=== PATIENT | male | born 1935 | race Caucasian/White ===

== ENCOUNTER 2017-05-23 06:56 | Emergency (ER) | payer MEDICARE, OTHER ==
[~2017-05-23] VITALS: Ht 167.6 cm; Wt 60.0 kg
[~2017-05-23 06:56] MED LIST: ACET250C PO; ALPH1CAP PO; ASPI81CH CHEW; COEN200C4 PO; DOCO1CAP2 PO; LIVA2TAB PO; NIAS1000 PO; OMEG12002 PO; PLAV75TA29 PO; PROT40TA PO
[2017-05-23 07:12] VITALS: BP 187/84; PULSE 76; RESP 22; TEMP 98.3; O2SAT 97
[2017-05-23] MEDS ORDERED: ESCI5TAB PO (07:23)
[2017-05-23 07:25] VITALS: RESP 18; O2SAT 97
[2017-05-23] MEDS ORDERED: PROMETHAZINE INJ 25 MG/ML VIAL IM ONE (07:30)
[2017-05-23 07:42] LABS: AUTOMATED NEUTROPHIL # 6.5 TH/MM3 (1.8-7.7); BASOPHIL # 0.1 TH/MM3 (0-0.2); BASOPHIL % 0.8 % (0.0-2.0); EOSINOPHIL # 0.8 TH/MM3 (0-0.4); EOSINOPHIL % 8.5 % (0.0-4.0); HEMATOCRIT 44.7 % (39.0-51.0); HEMO FLAGS DIFF FINAL; LYMPH % 13.7 % (9.0-44.0); LYMPHOCYTE # 1.3 TH/MM3 (1.0-4.8); MEAN CELL VOLUME 94.2 FL (80.0-100.0); MONO % 10.5 % (0.0-8.0); NEUT % 66.5 % (16.0-70.0); PLATELET COUNT 125 TH/MM3 (150-450); RED BLOOD COUNT 4.74 MIL/MM3 (4.50-5.90); RED CELL DISTRIBUTION WIDTH 13.5 % (11.6-17.2); WHITE BLOOD COUNT 9.8 TH/MM3 (4.0-11.0)
--- NOTE | 2017-05-23 07:46 | RADRPT ---
EXAM DATE/TIME: 05/23/2017 07:22 [facility] COMPARISON: No previous studies available for comparison. INDICATIONS : Dizziness and vomitting. MEDICAL HISTORY : Stroke. Hypertension Asthma. SURGICAL HISTORY : None. ENCOUNTER: Initial ACUITY: 1 day PAIN SCORE: 0/10 LOCATION: Bilateral chest FINDINGS: The heart is normal in size. The lungs appear clear. The visualized bony structures are grossly intac t. CONCLUSION: No acute cardiopulmonary findings. Sharath Larson MD on May 23, 2017 at 7:44 Board Certified Radiologist. This report was verified electronically.
--- NOTE | 2017-05-23 07:47 | RADRPT ---
EXAM DATE/TIME: 05/23/2017 07:30 [facility] COMPARISON: No previous studies available for comparison. INDICATIONS : Dizziness. RADIATION DOSE: 56.35 CTDIvol (mGy) MEDICAL HISTORY : Stroke. Hypertension. SURGICAL HISTORY : Tonsillectomy. Corotid endartectomy. ENCOUNTER: Initial ACUITY: 1 day PAIN SCALE: 0/10 LOCATION: Bilateral cranial TECHNIQUE: Multiple contiguous axial images were obtained of the head. Using automated exposure control and adj ustment of the mA and/or kV according to patient size, radiation dose was kept as low as reasonably a chievable to obtain optimal diagnostic quality images. DICOM format image data is available electro nically for review and comparison. FINDINGS: CEREBRUM: The ventricles are normal for age. No evidence of midline shift, mass lesion, hemorrhage or acute in farction. No extra-axial fluid collections are seen. POSTERIOR FOSSA: The cerebellum and brainstem are intact. The 4th ventricle is midline. The cerebellopontine angle i s unremarkable. EXTRACRANIAL: The visualized portion of the orbits is intact. SKULL: The calvaria is intact. No evidence of skull fracture. CONCLUSION: 1. No acute intracranial abnormality is identified. Sharath Larson MD on May 23, 2017 at 7:45 Board Certified Radiologist. This report was verified electronically.
[2017-05-23 07:56] LABS: PROTHROMBIN TIME - PATIENT 10.6 SEC (9.8-11.6)
[2017-05-23 08:11] LABS: ALT (GPT) 46 U/L (12-78); ANION GAP 8 MEQ/L (5-15); AST (GOT) 29 U/L (15-37); BICARBONATE 26.3 MEQ/L (21.0-32.0); BLOOD UREA NITROGEN 14 MG/DL (7-18); CHLORIDE 106 MEQ/L (98-107); GLOMERULAR FILTRATION RATE 91 ML/MIN (>89); POTASSIUM 4.1 MEQ/L (3.5-5.1); SODIUM (NA) 140 MEQ/L (136-145)
[2017-05-23 08:15] LABS: ALKALINE PHOSPHATASE 80 U/L (45-117); CREATINE KINASE 121 U/L (39-308); TOTAL BILIRUBIN ADULT 0.3 MG/DL (0.2-1.0)
--- NOTE | 2017-05-23 08:17 | PD ---
HPI Chief Complaint: Dizziness Time Seen by Provider: 07:20 Travel History International Travel<30 days: No Contact w/Intl Traveler<30days: No Traveled to known affect area: No History of Present Illness HPI has a history of vertigo (but unfortunately has allergy to meclizine). today he 's having another "attack" which makes him very nauseous, worse with movement, no fever/rose but assoc with room spinning, n/v pcp: dr barraza neuro: dr de leon [facility] Past Medical History Asthma: Yes Heart Rhythm Problems: No Cardiovascular Problems: Yes High Cholesterol: Yes Chest Pain: No COPD: No Cerebrovascular Accident: Yes (L SIDED WEAKNESS FROM PREVIOUS CVA) Diabetes: No Diminished Hearing: No Genitourinary: Yes Hypertension: Yes Inguinal Hernia: Yes Neurologic: Yes Migraines: Yes Thyroid Disease: No Triglycerides - High: Yes Tetanus Vaccination: < 5 Years Influenza Vaccination: Yes Past Surgical History Abdominal Surgery: Yes (DOUBLE INGUINAL AND UMBILICAL HERNIA) Cardiac Surgery: Yes (CAROTID ENDARECTOMY 11/20) Cholecystectomy: Yes Oral Surgery: Yes (TONSILLECTOMY) Tonsillectomy: Yes Other Surgery: Yes (gallbladder removal) Social History Alcohol Use: No Tobacco Use: No Substance Use: No Allergies-Medications (Allergen,Severity, Reaction): Coded Allergies: atorvastatin (Unverified Allergy, Severe, "STATINS", 03/30/17) penicillin G (Unverified Allergy, Severe, 03/30/17) shellfish derived (Unverified Allergy, Severe, 03/30/17) Sulfa (Sulfonamide Antibiotics) (Verified Allergy, Intermediate, HIVES, ) meclizine (Verified Allergy, Intermediate, VOMIT, 05/23/17) Reported Meds & Prescriptions Reported Meds & Active Scripts Active Reported Escitalopram (Escitalopram Oxalate) 5 Mg Tab 5 Mg PO DAILY Aspirin 81 Mg Chew 81 Mg CHEW DAILY Plavix (Clopidogrel Bisulfate) 75 Mg Tab 75 Mg PO DAILY Protonix (Pantoprazole Sodium) 40 Mg Tab 40 Mg PO DAILY Lindsay 3 1200 mg (Lindsay-3 Fatty Acids) 1 Cap Cap 1,400 Mg PO DIRECTED Niaspan (Niacin ER) 1,000 Mg Tab 1,000 Mg PO HS Livalo (Pitavastatin) 2 Mg Tab 2 Mg PO DAILY Alpha Lipoic Acid 200 Mg Cap 200 Mg PO DIRECTED Review of Systems HENT: Positive: Vertigo Physical Exam Narrative GENERAL: SKIN: Warm and dry. HEAD: Atraumatic. Normocephalic. EYES: Pupils equal and round. No scleral icterus. No injection or drainage. patient has fatiguable nystagmus (lateral) without rotary or vertical component ENT: No nasal bleeding or discharge. Mucous membranes pink and moist. NECK: Trachea midline. No JVD. CARDIOVASCULAR: Regular rate and rhythm. RESPIRATORY: No accessory muscle use. Clear to auscultation. Breath sounds equal bilaterally. GASTROINTESTINAL: Abdomen soft, non-tender, nondistended. MUSCULOSKELETAL: Extremities without clubbing, cyanosis, or edema. No obvious deformities. NEUROLOGICAL: Awake and alert. No obvious cranial nerve deficits. Motor grossly within normal limits. Five out of 5 muscle strength in the arms and legs. Normal speech. PSYCHIATRIC: Appropriate mood and affect; insight and judgment normal. Data Data Last Documented VS Vital Signs Date Time Temp Pulse Resp B/P (MAP) Pulse Ox O2 Delivery O2 Flow Rate FiO2 05/23/17 07:25 18 97 Room Air 05/23/17 07:17 76 05/23/17 07:12 98.3 187/84 (118) Orders Orders Electrocardiogram (05/23/17 07:20) Complete Blood Count With Diff (05/23/17 07:20) Comprehensive Metabolic Panel (05/23/17 07:20) Ckmb (Isoenzyme) Profile (05/23/17 07:20) Troponin I (05/23/17 07:20) B-Type Natriuretic Peptide (05/23/17 07:20) Prothrombin Time / Inr (Pt) (05/23/17 07:20) Act Partial Throm Time (Ptt) (05/23/17 07:20) Lipase (05/23/17 07:20) Urinalysis - C+S If Indicated (05/23/17 07:20) Chest, Single Ap (05/23/17 07:20) Ct Brain W/O Iv Contrast(Rout) (05/23/17 07:20) Iv Access Insert/Monitor (05/23/17 07:20) Ecg Monitoring (05/23/17 07:20) Oximetry (05/23/17 07:20) Promethazine Inj (Phenergan Inj) (05/23/17 07:30) CKMB (05/23/17 07:30) CKMB% (05/23/17 07:30) Labs Laboratory Tests Test 05/23/17 07:30 White Blood Count 9.8 TH/MM3 Red Blood Count 4.74 MIL/MM3 Hemoglobin 15.2 GM/DL Hematocrit 44.7 % Mean Corpuscular Volume 94.2 FL Mean Corpuscular Hemoglobin 32.0 PG Mean Corpuscular Hemoglobin Concent 34.0 % Red Cell Distribution Width 13.5 % Platelet Count 125 TH/MM3 Mean Platelet Volume 10.0 FL Neutrophils (%) (Auto) 66.5 % Lymphocytes (%) (Auto) 13.7 % Monocytes (%) (Auto) 10.5 % Eosinophils (%) (Auto) 8.5 % Basophils (%) (Auto) 0.8 % Neutrophils # (Auto) 6.5 TH/MM3 Lymphocytes # (Auto) 1.3 TH/MM3 Monocytes # (Auto) 1.0 TH/MM3 Eosinophils # (Auto) 0.8 TH/MM3 Basophils # (Auto) 0.1 TH/MM3 CBC Comment DIFF FINAL Differential Comment Prothrombin Time 10.6 SEC Prothromb Time International Ratio 1.0 RATIO Activated Partial Thromboplast Time 20.0 SEC Blood Urea Nitrogen 14 MG/DL Creatinine 0.81 MG/DL Random Glucose 145 MG/DL Total Protein 6.6 GM/DL Albumin 3.3 GM/DL Calcium Level 8.6 MG/DL Alkaline Phosphatase 80 U/L Aspartate Amino Transf (AST/SGOT) 29 U/L Alanine Aminotransferase (ALT/SGPT) 46 U/L Total Bilirubin 0.3 MG/DL Sodium Level 140 MEQ/L Potassium Level 4.1 MEQ/L Chloride Level 106 MEQ/L Carbon Dioxide Level 26.3 MEQ/L Anion Gap 8 MEQ/L Estimat Glomerular Filtration Rate 91 ML/MIN Total Creatine Kinase 121 U/L Creatine Kinase MB 2.2 NG/ML Troponin I 0.02 NG/ML B-Type Natriuretic Peptide 47 PG/ML Lipase 192 U/L [facility] Medical Decision Making Medical Screen Exam Complete: Yes Emergency Medical Condition: Yes Medical Record Reviewed: Yes Differential Diagnosis ich v pna v anemia v vertigo Narrative Course PATIENT NOTED TO FINALLY REST PEACEFULLY AND WITHOUT FURTHER EPISODES OF VOMITING AFTER PHENERGAN, CT NEG FOR ICH/OR ISCHEMIC CVA, ELECTROLYTE NL, LFTS NL. Diagnosis Primary Impression: VERTIGO Referrals: Dick Lora MD FOR FURTHER TREATMENT Patient Instructions: Benign Paroxysmal Positional Vertigo (ED), General Instructions Scripts Promethazine (Phenergan) 25 Mg Tablet 25 MG PO Q6H Y for NAUSEA OR VOMITING, #20 TAB 0 Refills Prov: Jose Miguel Moses MD 05/23/17 Promethazine Supp (Phenergan Supp) 25 Mg Supp 25 MG RECTAL Q4H Y for NAUSEA OR VOMITING, #10 SUPP 0 Refills Prov: Jose Miguel Moses MD 05/23/17 Disposition: 01 DISCHARGE HOME Condition: Stable Jose Miguel Moses MD May 23, 2017 07:33
[2017-05-23 08:28] LABS: CKMB 2.2 NG/ML (0.5-3.6)
[2017-05-23] MEDS ORDERED: PROM25TA10 PO (09:41)
[2017-05-23] MEDS ORDERED: PROM1SUP7 RECTAL (09:41)
[2017-05-23 09:49] VITALS: BP 136/66; PULSE 77; RESP 20; O2SAT 94
--- NOTE | 2017-05-23 12:57 | EKG ---
Date Performed: 05/23/2017 Time Performed: 07:18:09 PTAGE: 81 years EKG: ELECTRONIC ATRIAL PACEMAKER ABNORMAL RHYTHM ECG NO PREVIOUS TRACING DOCTOR: Rk Peterson Interpretating Date/Time 05/23/2017 12:55:47
== END 2017-05-23 10:23 | disposition home or self-care (01) ==
LOC: NEPC 06:56
DX: R42 Dizziness and giddiness (principal); R11.2 Nausea with vomiting, unspecified; I10 Essential (primary) hypertension; Z79.02 Long term (current) use of antithrombotics/antiplatelets; Z79.899 Other long term (current) drug therapy
CPT/HCPCS: 70450; 71010; 80053; 82550; 82552; 83690; 83880; 84484; 85025; 85610; 85730; 93005; 96372; 99285; J2550

== ENCOUNTER 2017-07-30 17:58 | Emergency (ER) | payer MEDICARE, OTHER ==
[~2017-07-30 17:58] MED LIST changes: -ACET250C PO; -ALPH1CAP PO; +ALPH200C4 PO; +ASPI-516 CHEW; -ASPI81CH CHEW; -COEN200C4 PO; -DOCO1CAP2 PO; +ESCI5TAB PO; +PROM1SUP7 RECTAL; +PROM25TA10 PO
[2017-07-30 18:00] VITALS: BP 161/72; PULSE 70; RESP 14; TEMP 97.7; O2SAT 94
--- NOTE | 2017-07-30 19:03 | PD ---
HPI Chief Complaint: Head Injury Time Seen by Provider: 18:36 Travel History International Travel<30 days: No Contact w/Intl Traveler<30days: No Traveled to known affect area: No History of Present Illness HPI 82-year-old male patient presents emergency department for evaluation after he fell at home while doing rehabilitation exercises and hit his head earlier this afternoon. Patient is on Plavix. Patient had a stroke in 1999 and has very mild residua right-sided weakness. Patient had extreme vertigo he was diagnosed with an October and has been doing rehabilitation exercises at home subsequently to help with his vertigo. Patient is alert and oriented at this time. Patient is unsure if he lost consciousness. There is no hematoma or laceration noted to the posterior aspect of his head which is where he stated he had it. Pupils demonstrated PERRLA bilaterally. Patient denies any midline cervical spine tenderness. Patient has full range of motion neck. Patient denies any fever, chills, chest pain, shortness breath, abdominal pain, nausea, vomiting, diarrhea. PFSH Past Medical History Hx Anticoagulant Therapy: Yes Asthma: Yes Heart Rhythm Problems: No Cancer: Yes (skin spots removed) Cardiovascular Problems: Yes High Cholesterol: Yes Chest Pain: No COPD: No Cerebrovascular Accident: Yes (RIGHT SIDED WEAKNESS FROM PREVIOUS CVA) Diabetes: No Diminished Hearing: No Genitourinary: Yes Hypertension: Yes Inguinal Hernia: Yes Neurologic: Yes Migraines: Yes Thyroid Disease: No Triglycerides - High: Yes Tetanus Vaccination: < 5 Years Influenza Vaccination: No Past Surgical History Abdominal Surgery: Yes (DOUBLE INGUINAL AND UMBILICAL HERNIA) Cardiac Surgery: Yes (CAROTID ENDARECTOMY 11/20) Cholecystectomy: Yes Oral Surgery: Yes (TONSILLECTOMY) Tonsillectomy: Yes Other Surgery: Yes (gallbladder removal) Social History Alcohol Use: No Tobacco Use: No Substance Use: No Allergies-Medications (Allergen,Severity, Reaction): Coded Allergies: atorvastatin (Unverified Allergy, Severe, "STATINS", 07/30/17) penicillin G (Unverified Allergy, Severe, 07/30/17) shellfish derived (Unverified Allergy, Severe, 07/30/17) Sulfa (Sulfonamide Antibiotics) (Verified Allergy, Intermediate, HIVES, ) meclizine (Verified Allergy, Intermediate, VOMIT, 07/30/17) Reported Meds & Prescriptions Reported Meds & Active Scripts Active Reported Escitalopram (Escitalopram Oxalate) 5 Mg Tab 5 Mg PO DAILY Aspirin 81 Mg Chew 81 Mg CHEW DAILY Plavix (Clopidogrel Bisulfate) 75 Mg Tab 75 Mg PO DAILY Protonix (Pantoprazole Sodium) 40 Mg Tab 40 Mg PO DAILY Patterson 3 1200 mg (Patterson-3 Fatty Acids) 1 Cap Cap 1,400 Mg PO DIRECTED Review of Systems Except as stated in HPI: all other systems reviewed are Neg Physical Exam Narrative GENERAL: Well-nourished, well-developed 82-year-old male patient in no acute distress. Nontoxic appearing. SKIN: Focused skin assessment warm/dry. HEAD: Normocephalic. Atraumatic. EYES: No scleral icterus. No injection or drainage. NEUROLOGICAL: Awake and alert. Cranial nerves II through XII intact. Motor and sensory grossly within normal limits. Five out of 5 muscle strength on left side with upper and lower extremity. 4 out of 5 muscle strength on right side with upper and lower extremity. Normal speech. NECK: Supple, trachea midline. No JVD or lymphadenopathy. CARDIOVASCULAR: Regular rate and rhythm without murmurs, gallops, or rubs. RESPIRATORY: Breath sounds equal bilaterally. No accessory muscle use. GASTROINTESTINAL: Abdomen soft, non-tender, nondistended. MUSCULOSKELETAL: Very mild residual right-sided weakness with upper and lower extremity from previous CVA. No obvious deformity, ecchymosis, erythema, cyanosis, or edema. BACK: No midline spinal tenderness. No obvious deformity, ecchymosis, erythema. No CVA tenderness. Data Data Last Documented VS Vital Signs Date Time Temp Pulse Resp B/P (MAP) Pulse Ox O2 Delivery O2 Flow Rate FiO2 07/30/17 20:43 07/30/17 18:00 97.7 [address] Brain W/O Iv Contrast(Rout) (07/30/17 18:49) Ed Discharge Order (07/30/17 20:31) MDM Medical Decision Making Medical Screen Exam Complete: Yes Emergency Medical Condition: Yes Differential Diagnosis Differential diagnosis include but not limited to head injury, ICH, skull fracture, fracture Narrative Course 82-year-old male patient presents emergency department for evaluation of fall where he hit the posterior aspect his head. He is unsure if he lost consciousness. Patient is on Plavix. Patient denies any midline cervical spine tenderness. There is no other injuries noted. Brain CT ordered and pending. CT shows no acute intracranial abnormality. Results discussed with patient and his daughter. Patient will be discharged home with instructions to return to the emergency Department with any acute changes or worsening condition. Patient and daughter onboard with primary care. Patient's daughter is planning to stay at his house tonight to observe him. Patient will be discharged home at this time. Last Impressions Head CT 07/30/17 1849 Signed Impressions: Service Date/Time: Sunday, July 30, 2017 19:33 - CONCLUSION: 1. No acute intracranial abnormality. Remote infarct in the left lópez. Juan Biswas MD Diagnosis Primary Impression: Fall Qualified Codes: W19.XXXA - Unspecified fall, initial encounter Referrals: Primary Care Physician Patient Instructions: Fall Prevention (ED), General Instructions Additional Instructions: Please return to emergency department if your symptoms return or worsen. Follow up with your primary care provider. Disposition: 01 DISCHARGE HOME Condition: Stable Alana Damonandrea ADAMS Jul 30, 2017 19:03
--- NOTE | 2017-07-30 19:50 | RADRPT ---
EXAM DATE/TIME: 07/30/2017 19:33 [facility] COMPARISON: No previous studies available for comparison. INDICATIONS : Trauma, fall. RADIATION DOSE: 31.44 CTDIvol (mGy) MEDICAL HISTORY : Cerebrovascular disease. Cardiovascular disease SURGICAL HISTORY : None. ENCOUNTER: Initial ACUITY: 1 day PAIN SCALE: 5/10 LOCATION: cranial TECHNIQUE: Multiple contiguous axial images were obtained of the head. Using automated exposure control and adj ustment of the mA and/or kV according to patient size, radiation dose was kept as low as reasonably a chievable to obtain optimal diagnostic quality images. DICOM format image data is available electro nically for review and comparison. FINDINGS: CEREBRUM: The ventricles are normal for age. No evidence of midline shift, mass lesion, hemorrhage or acute in farction. No extra-axial fluid collections are seen. POSTERIOR FOSSA: The 4th ventricle is midline. The cerebellopontine angle is unremarkable. Remote infarct left lópez. EXTRACRANIAL: The visualized portion of the orbits is intact. SKULL: The calvaria is intact. No evidence of skull fracture. CONCLUSION: 1. No acute intracranial abnormality. Remote infarct in the left lópez. Juan Biswas MD on July 30, 2017 at 19:46 Board Certified Radiologist. This report was verified electronically.
== END 2017-07-30 21:15 | disposition home or self-care (01) ==
LOC: NEPE 17:58
DX: S09.90XA Unspecified injury of head, initial encounter (principal); I69.951 Hemiplegia and hemiparesis following unspecified cerebrovascular disease affecting right dominant side; J45.909 Unspecified asthma, uncomplicated; E78.00 Pure hypercholesterolemia, unspecified; I10 Essential (primary) hypertension; W18.00XA Striking against unspecified object with subsequent fall, initial encounter; Z79.02 Long term (current) use of antithrombotics/antiplatelets; Z79.82 Long term (current) use of aspirin; Z79.899 Other long term (current) drug therapy
CPT/HCPCS: 70450; 99284

== ENCOUNTER → 2017-10-21 | Outpatient (CLI) | payer MEDICARE, OTHER ==
[~2017-10-21] MED LIST changes: -ALPH200C4 PO; -LIVA2TAB PO; -NIAS1000 PO; -PROM1SUP7 RECTAL; -PROM25TA10 PO
[2017-10-21 19:01] LABS: BILIRUBIN, URINE NEG (NEG); BLOOD, URINE NEG (NEG); GLUCOSE,URINE NEG (NEG); KETONE, URINE NEG (NEG); NITRITE,URINE NEG (NEG); SQUAMOUS EPITHELIAL CELL URINE <1 /hpf (0-5); URINE COLOR YELLOW (YELLW/STRAW); URINE LEUKOCYTE ESTERASE NEG (NEG)
== END ==
LOC: PLAB 11:50
PROVIDERS: ATTEND Family Medicine
DX: R39.89 Other symptoms and signs involving the genitourinary system (principal)
CPT/HCPCS: 81001; 87086

== ENCOUNTER 2018-01-08 02:28 | Emergency (ER) | payer MEDICARE, OTHER ==
[2018-01-08 02:33] VITALS: BP 186/75; PULSE 73; RESP 18; TEMP 98.4; O2SAT 92
--- NOTE | 2018-01-08 02:40 | PD ---
HPI Chief Complaint: Fall Time Seen by Provider: 02:38 Travel History International Travel<30 days: No Contact w/Intl Traveler<30days: No Traveled to known affect area: No History of Present Illness HPI Patient was going to the bathroom, he normally uses a walker. As he entered into the bathroom, he slipped off his walker and fell backwards hitting the back of his head on the tile and his right elbow. His right elbow had a small skin tear which started bleeding. No bleeding from his head, per daughter no evidence of any loss of consciousness he was able to stand up with some assistance and able to ambulate on his walker Per record review has allergies to sulfa, atorvastatin, meclizine, penicillin and shellfish Patient has had a past medical history significant for tonsillectomy, vertigo, right-sided weakness from previous CVA, migraine, carotid endarterectomy, hypercholesterolemia, hyperlipidemia, hypertension, double inguinal umbilical hernia repair, cholecystectomy, PFSH Past Medical History Hx Anticoagulant Therapy: Yes Asthma: Yes Heart Rhythm Problems: No Cancer: Yes (skin spots removed) Cardiovascular Problems: Yes High Cholesterol: Yes Chest Pain: No COPD: No Cerebrovascular Accident: Yes (RIGHT SIDED WEAKNESS FROM PREVIOUS CVA) Diabetes: No Diminished Hearing: No Genitourinary: Yes Hypertension: Yes Inguinal Hernia: Yes Neurologic: Yes (VERTIGO) Immunizations Current: Yes Migraines: Yes Thyroid Disease: No Triglycerides - High: Yes Past Surgical History Abdominal Surgery: Yes (DOUBLE INGUINAL AND UMBILICAL HERNIA) Cardiac Surgery: Yes (CAROTID ENDARECTOMY 11/20) Cholecystectomy: Yes Oral Surgery: Yes (TONSILLECTOMY) Tonsillectomy: Yes Other Surgery: Yes (gallbladder removal) Social History Alcohol Use: No Tobacco Use: No Substance Use: No Allergies-Medications (Allergen,Severity, Reaction): Coded Allergies: atorvastatin (Unverified Allergy, Severe, "STATINS", 01/08/18) penicillin G (Unverified Allergy, Severe, 01/08/18) shellfish derived (Unverified Allergy, Severe, 01/08/18) Sulfa (Sulfonamide Antibiotics) (Verified Allergy, Intermediate, HIVES, ) meclizine (Verified Allergy, Intermediate, VOMIT, 01/08/18) Reported Meds & Prescriptions Reported Meds & Active Scripts Active Reported Livalo (Pitavastatin) 2 Mg Tab 2 Mg PO DAILY Escitalopram (Escitalopram Oxalate) 5 Mg Tab 5 Mg PO DAILY Aspirin 81 Mg Chew 81 Mg CHEW DAILY Plavix (Clopidogrel Bisulfate) 75 Mg Tab 75 Mg PO DAILY Protonix (Pantoprazole Sodium) 40 Mg Tab 40 Mg PO DAILY Review of Systems General / Constitutional: No: Fever Eyes: No: Visual changes HENT: Positive: Headaches Cardiovascular: No: Chest Pain or Discomfort Respiratory: No: Shortness of Breath Gastrointestinal: No: Abdominal Pain Genitourinary: No: Dysuria Musculoskeletal: No: Pain Skin: No Rash Neurologic: No: Weakness Psychiatric: No: Depression Endocrine: No: Polydipsia Hematologic/Lymphatic: No: Easy Bruising Physical Exam Narrative GENERAL: SKIN: Warm and dry. Right elbow has its full range of motion, there is a small skin tear about size of a quarter that is present but not actively bleeding. HEAD: Posterior scalp contusion, normocephalic. EYES: Pupils equal and round. No scleral icterus. No injection or drainage. ENT: No nasal bleeding or discharge. Mucous membranes pink and moist. NECK: Trachea midline. No JVD. CARDIOVASCULAR: Regular rate and rhythm. RESPIRATORY: No accessory muscle use. Clear to auscultation. Breath sounds equal bilaterally. GASTROINTESTINAL: Abdomen soft, non-tender, nondistended. MUSCULOSKELETAL: Extremities without clubbing, cyanosis, or edema. No obvious deformities. NEUROLOGICAL: Awake and alert. No obvious cranial nerve deficits. Motor grossly within normal limits. Five out of 5 muscle strength in the arms and legs. Normal speech. PSYCHIATRIC: Appropriate mood and affect; insight and judgment normal. Data Data Last Documented VS Vital Signs Date Time Temp Pulse Resp B/P (MAP) Pulse Ox O2 Delivery O2 Flow Rate FiO2 01/08/18 02:49 71 18 130/68 (88) 94 Room Air 01/08/18 02:[address] Brain W/O Iv Contrast(Rout) (01/08/18 02:42) [facility] Medical Decision Making Medical Screen Exam Complete: Yes Emergency Medical Condition: Yes Medical Record Reviewed: Yes Differential Diagnosis Intracranial hemorrhage versus skull fracture versus contusion versus brain mass Narrative Course CT head read by radiologist as no bleed or acute intracranial abnormality, old brainstem infarct in the left lópez was noted. Diagnosis Primary Impression: Scalp contusion Additional Impression: Skin abrasion/right elbow Patient Instructions: General Instructions, Scalp Contusion in Adults (ED) Disposition: 01 DISCHARGE HOME Condition: Stable Jose Miguel Moses MD January 08, 2018 02:40
[2018-01-08] MEDS ORDERED: LIVA2TAB PO (02:45)
[2018-01-08 02:49] VITALS: BP 130/68; PULSE 71; RESP 18; O2SAT 94
--- NOTE | 2018-01-08 04:41 | RADRPT ---
EXAM DATE: 01/08/2018 2:58 AM EDT AGE/SEX: 82 years / Male INDICATIONS: Trauma, fall. On blood thinners. CLINICAL DATA: This is the patient's initial encounter. Patient reports that signs and symptoms have been present for 1 day and indicates a pain score of 5/10. MEDICAL/SURGICAL HISTORY: Hypertension. Cerebrovascular disease. None. RADIATION DOSE: 34.83 CTDI (mGy) COMPARISON: [facility] [place], 07/30/2017. . TECHNIQUE: CT of the head without contrast. Using automated exposure control and adjustment of the mA and/or kV according to patient size, radiation dose was kept as low as reasonably achievable to ob tain optimal diagnostic quality images. FINDINGS: Cerebrum: The ventricles are normal for age. No evidence of midline shift, mass lesion, hemorrhage or acute infarction. No extraaxial fluid collections are seen. Old lacunar infarct of the brainstem again noted. Posterior Fossa: The cerebellum and brainstem are intact. The 4th ventricle is midline. The cerebe llopontine angle is unremarkable. Extracranial: The visualized portion of the orbits is intact. Skull: The calvaria is intact. No evidence of skull fracture. CONCLUSION: 1. No bleed or other acute intracranial abnormality. 2. 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 Electronically signed by: Angel Luis Nova MD 01/08/2018 4:40 AM EDT
== END 2018-01-08 05:59 | disposition home or self-care (01) ==
LOC: NEPC 02:28
DX: S00.03XA Contusion of scalp, initial encounter (principal); S50.311A Abrasion of right elbow, initial encounter; W01.0XXA Fall on same level from slipping, tripping and stumbling without subsequent striking against object, initial encounter; Y92.002 Bathroom of unspecified non-institutional (private) residence as the place of occurrence of the external cause
CPT/HCPCS: 70450

== ENCOUNTER 2018-06-05 13:54 | Inpatient (IN) ==
--- NOTE | 2018-06-05 15:12 | ED ---
HPI General Chief complaint: Eye Problems Stated complaint: Left eye blurry vision Time Seen by Provider: 06/05/18 14:28 History of Present Illness HPI Narrative: This patient had a 30-minute spell today at 1 PM. He was riding in the car when it happened. He reports that the top left corner visual field of his left eye went black. The right eye was fine. The rest of the visual field was okay as well. No flashes or floaters or eye pain or headache or syncope. At this point patient is completely asymptomatic. He has baseline right weakness from a prior stroke which is unchanged. He reports compliance with aspirin and Plavix therapy. Severity was moderate but now is completely gone. No alleviating factors. No exacerbating factors. Duration 30 minutes Related Data Home Medications Medication Instructions Recorded Confirmed aspirin [Aspirin Childrens] 81 mg PO DAILY 05/01/18 06/05/18 clopidogrel 75 mg PO DAILY 05/01/18 06/05/18 escitalopram oxalate 5 mg PO DAILY 05/01/18 06/05/18 pantoprazole 40 mg PO DAILY 05/01/18 06/05/18 pitavastatin calcium [Livalo] 2 mg PO DAILY 05/01/18 06/05/18 vit B6-mag cit,oxid-potass cit 2 tab PO BID 06/05/18 06/05/18 [Theralith XR] Allergies Allergy/AdvReac Type Severity Reaction Status Date / Time atorvastatin Allergy Severe "STATINS" Verified 06/05/18 15:58 penicillin G Allergy Severe Itching Verified 06/05/18 15:58 shellfish derived Allergy Severe Nausea Verified 06/05/18 15:58 meclizine Allergy Intermediate VOMIT Verified 06/05/18 15:58 Sulfa (Sulfonamide Allergy Intermediate HIVES Verified 06/05/18 15:58 Antibiotics) Review of Systems ROS: all other systems reviewed are negative PMFSH Social History Social History Substance History: No History of Abuse Second Hand Smoke Exposure: No Smoking Status: Never smoker How Often Do You Have a Drink Containing Alcohol: Never Recent Travel in [facility] within the Last 8 Weeks: No Recent Out of Country Travel within the Last 8 Weeks: No Immunization History Tetanus Immunization: Unsure Exam Narrative Exam Narrative: GENERAL: Well-nourished, well-developed patient in no apparent distress. SKIN: Focused skin assessment reveals no rash and nodules. Skin is Warm and dry. HEAD: Atraumatic. Normocephalic. EYES: Pupils equal and round. No scleral icterus. No injection or drainage. Extraocular muscles are intact. Visual yancey are full. ENT: No nasal bleeding or discharge. Mucous membranes pink and moist. NECK: Trachea midline. No JVD. CARDIOVASCULAR: Regular rate and rhythm. No murmur appreciated. RESPIRATORY: No accessory muscle use. Clear to auscultation. Breath sounds equal bilaterally. GASTROINTESTINAL: Abdomen soft, non-tender, nondistended. Hepatic and splenic margins not palpable. MUSCULOSKELETAL: No obvious deformities. No clubbing. No cyanosis. No edema. NEUROLOGICAL: Awake and alert. No obvious cranial nerve deficits. Motor grossly within normal limits. Normal speech. PSYCHIATRIC: Appropriate mood and affect; insight and judgment normal. Course Initial Documented Vital Signs Temperature 98.2 F 06/05/18 13:58 Pulse Rate 78 06/05/18 13:58 Respiratory Rate 20 06/05/18 13:58 Blood Pressure 124/59 L 06/05/18 13:58 Pulse Oximetry 94 L 06/05/18 13:58 Last Documented Vital Signs Temperature 98.2 F 06/05/18 13:58 Pulse Rate 68 06/05/18 18:37 Respiratory Rate 20 06/05/18 18:37 Blood Pressure 127/60 06/05/18 18:37 Pulse Oximetry 92 L 06/05/18 18:37 Sign Out Sign Out Data: Patient Sign Out occurred on 06/05/18 at 17:02. Patient's care was discussed, and care was transferred from Rolando Ross MD to Corby Mak MD. Sign Out Comment: CTA of the brain and carotids is pending, as are CRP and sed rate. Case is checked out to the evening physician to assist with disposition. Last updated by Rolando Ross MD at 06/05/18 16:36 Post-Handoff Eval: Patient was initially evaluated by the previous provider and signed out to me at the beginning of my shift pending CTA neck, CTA head, and disposition. See his note for further details. Briefly this is an 83-year-old male with history of CVA with right-sided weakness in 2006, status post left carotid endarterectomy at that time, here for evaluation of transient left I left upper quadrant field loss for about 30 minutes today. Symptoms have resolved while in the emergency department, and on my assessment the patient reports that his symptoms have not returned. He has occasional itching sensation to his left forehead. No new motor deficits or weakness. CT brain shows old CVA. CTA carotids: CONCLUSION:1. Status post left carotid endarterectomy without hemodynamically significant stenosis.2. Eccentric densely calcified plaque extending from the right carotid bulb to the origin of the internal carotid artery and in the proximal right internal carotid artery with resultant tandem 35-40% stenoses.3. Dominant right vertebral artery without significant vertebral artery stenosis CTA head: CONCLUSION:1. No significant stenosis or large vessel occlusion in the anterior circulation.2. 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 Case discussed with on-call neurologist Dr. Chapman who was contacted by the previous provider and recommended CTA head and neck. Plan at this time is to discontinue the patient's aspirin and Plavix and start him on Aggrenox twice daily, 1 dose of 500 mg of subcu heparin now. He also recommends a dose of IV Solu-Medrol as pruritus to the left forehead with vision change could indicate early shingles. The patient has no rash on exam. No eye pain. No vision loss or vision changes while in the emergency department. ESR and CRP were also recommended and are. It was also recommended that the patient have fasting lipids performed in the a.m. The patient and the patient's daughter were made aware of all findings and are happy with this plan. Case discussed with hospitalist Dr. Braswell who will admit the patient to the hospitalist service. Medical Decision Making [facility] Narrative Medical decision making narrative: This is an 83-year-old male with a 30-minute spell of visual field problems. Patient has a personal data storage specialist and neurologist. I reviewed the case in detail with Dr. Concepcion who is covering for data storage specialist as well as Dr. Chapman who is covering for patient's neurologist Dr. Platt. Neurologist has recommended that if creatinine is normal to obtain CTA of the brain and carotids. CRP and sed rate have been added in as recommendations from ophthalmology. Both specialist agree that this is likely a neurology problem and likely had bilateral issue that was only recognized on one side. Medical Screen Exam Complete: Yes Emergency Medical Condition: Yes Lab Data Result diagrams: 06/05/18 15:15 06/05/18 15:15 Lab Results 06/05/18 06/05/18 06/05/18 Range/Units 15:15 15:15 15:15 WBC 5.6 (4.0-11.0) th/mm3 RBC 4.86 (4.50-5.90) mil/mm3 Hgb 15.2 (13.0-17.0) gm/dL Hct 45.9 (39.0-51.0) % MCV 94.5 (80.0-100.0) fL MCH 31.3 (27.0-34.0) pg MCHC 33.1 (32.0-36.0) % RDW 13.9 (11.6-17.2) % Plt Count 175 (150-450) th/mm3 MPV 10.4 (7.0-11.0) fL Neut % (Auto) 62.2 (16.0-70.0) % Lymph % (Auto) 18.4 (9.0-44.0) % Whitley % (Auto) 11.2 H (0.0-8.0) % Eos % (Auto) 7.2 H (0.0-4.0) % Baso % (Auto) 1.0 (0.0-2.0) % Neut # (Auto) 3.5 (1.8-7.7) th/mm3 Lymph # (Auto) 1.0 (1.0-4.8) th/mm3 Whitley # (Auto) 0.6 (0.0-0.9) th/mm3 Eos # (Auto) 0.4 (0.0-0.4) th/mm3 Baso # (Auto) 0.1 (0.0-0.2) th/mm3 WBC Differential . Differential Comment Auto diff final ESR (0-20) mm/hr Sodium 141 (136-145) meq/L Potassium 4.6 (3.5-5.1) meq/L Chloride 110 H (98-107) meq/L Carbon Dioxide 25.4 (21.0-32.0) meq/L Anion Gap 6 (5-15) meq/L BUN 21 H (7-18) mg/dL Creatinine 1.00 (0.60-1.30) mg/dL Estimated GFR 71 L (>89) mL/min Random Glucose 116 H (74-106) mg/dL Calcium 8.3 L (8.5-10.1) mg/dL C-Reactive Protein Less than 0.29 (0.00-0.30) mg/dL 06/05/18 Range/Units 15:15 WBC (4.0-11.0) th/mm3 RBC (4.50-5.90) mil/mm3 Hgb (13.0-17.0) gm/dL Hct (39.0-51.0) % MCV (80.0-100.0) fL MCH (27.0-34.0) pg MCHC (32.0-36.0) % RDW (11.6-17.2) % Plt Count (150-450) th/mm3 MPV (7.0-11.0) fL Neut % (Auto) (16.0-70.0) % Lymph % (Auto) (9.0-44.0) % Whitley % (Auto) (0.0-8.0) % Eos % (Auto) (0.0-4.0) % Baso % (Auto) (0.0-2.0) % Neut # (Auto) (1.8-7.7) th/mm3 Lymph # (Auto) (1.0-4.8) th/mm3 Whitley # (Auto) (0.0-0.9) th/mm3 Eos # (Auto) (0.0-0.4) th/mm3 Baso # (Auto) (0.0-0.2) th/mm3 WBC Differential Differential Comment ESR 3 (0-20) mm/hr Sodium (136-145) meq/L Potassium (3.5-5.1) meq/L Chloride (98-107) meq/L Carbon Dioxide (21.0-32.0) meq/L Anion Gap (5-15) meq/L BUN (7-18) mg/dL Creatinine (0.60-1.30) mg/dL Estimated GFR (>89) mL/min Random Glucose (74-106) mg/dL Calcium (8.5-10.1) mg/dL C-Reactive Protein (0.00-0.30) mg/dL Imaging Data Radiologist's impression: Head CTA 06/05/18 15:08 CONCLUSION: 1. No significant stenosis or large vessel occlusion in the anterior circulation. 2. 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 Neck CTA 06/05/18 15:08 CONCLUSION: 1. Status post left carotid endarterectomy without hemodynamically significant stenosis. 2. Eccentric densely calcified plaque extending from the right carotid bulb to the origin of the internal carotid artery and in the proximal right internal carotid artery with resultant tandem 35-40% stenoses. 3. Dominant right vertebral artery without significant vertebral artery stenosis. Head CT 06/05/18 17:03 CONCLUSION: 1. No acute findings. 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 No change from May 01. . Discharge Plan Discharge Disposition Patient Disposition: 30 Still Patient Discharge Condition Condition: Stable Discharge Details Diagnosis: TIA (transient ischemic attack), Carotid stenosis, Transient visual loss of left eye Physicians Team ED Provider: Corby Mak Primary Care Provider: Yaw Collins Rxs /Orders / Referrals /Forms Prescriptions: No Action clopidogrel 75 mg Tablet 75 mg PO DAILY RF: 0 pantoprazole 40 mg Tablet,Delayed Release (Dr/Ec) 40 mg PO DAILY RF: 0 aspirin [Aspirin Childrens] 81 mg Tablet,Chewable 81 mg PO DAILY RF: 0 escitalopram oxalate 5 mg Tablet 5 mg PO DAILY RF: 0 pitavastatin calcium [Livalo] 2 mg Tablet 2 mg PO DAILY RF: 0 vit B6-mag cit,oxid-potass cit [Theralith XR] 3.75-45-45-49.5 mg Tablet Extended Release 2 tab PO BID RF: 0 Discharge Interventions Interventions: Vital Signs Last Done: 06/05/18 18:37 Status ED Status: With Doctor
[2018-06-05 15:49] LABS: Baso # (Auto) 0.1 th/mm3 (0.0-0.2); Eos # (Auto) 0.4 th/mm3 (0.0-0.4); Eos % (Auto) 7.2 % (0.0-4.0); Hematocrit 45.9 % (39.0-51.0); Hemoglobin 15.2 gm/dL (13.0-17.0); Lymph % (Auto) 18.4 % (9.0-44.0); Mean Corpuscular HGB Conc 33.1 % (32.0-36.0); Mean Corpuscular Hemoglobin 31.3 pg (27.0-34.0); Mean Corpuscular Volume 94.5 fL (80.0-100.0); Mean Platelet Volume 10.4 fL (7.0-11.0); Mono # (Auto) 0.6 th/mm3 (0.0-0.9); Mono % (Auto) 11.2 % (0.0-8.0); Neut # (Auto) 3.5 th/mm3 (1.8-7.7); Neut % (Auto) 62.2 % (16.0-70.0); Platelet Count 175 th/mm3 (150-450); Red Blood Count 4.86 mil/mm3 (4.50-5.90); Red Cell Distribution Width 13.9 % (11.6-17.2); White Blood Count 5.6 th/mm3 (4.0-11.0)
[2018-06-05 16:11] LABS: Calcium 8.3 mg/dL (8.5-10.1); Carbon Dioxide 25.4 meq/L (21.0-32.0)
[2018-06-05 16:12] LABS: Potassium 4.6 meq/L (3.5-5.1)
--- NOTE | 2018-06-05 17:51 | CT ---
EXAM DATE: 06/05/2018 5:06 PM EDT AGE/SEX: 83 years / Male INDICATIONS: Visual changes in left eye. CLINICAL DATA: This is the patient's initial encounter. Patient reports that signs and symptoms have been present for 1 day and indicates a pain score of 0/10. MEDICAL/SURGICAL HISTORY: Stroke. Hypertension. None. RADIATION DOSE: 52.83 CTDI (mGy) COMPARISON: [facility] [place], CT HEAD W/O CONTRAST, 05/01/2018. . TECHNIQUE: CT of the head without contrast. Using automated exposure control and adjustment of the mA and/or kV according to patient size, radiation dose was kept as low as reasonably achievable to ob tain optimal diagnostic quality images. DICOM format image data is available electronically for revi ew and comparison. FINDINGS: There is cortical volume loss. Remote infarct in the lópez, stable since May 01. Chronic white m atter ischemic changes. No acute mass, hemorrhage or shift. CONCLUSION: 1. No acute findings. 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 No change from May 01. . Electronically signed by: Juan Biswas MD 06/05/2018 5:50 PM EDT
--- NOTE | 2018-06-05 18:24 | CT ---
EXAM DATE: 06/05/2018 4:25 PM EDT AGE/SEX: 83 years / Male INDICATIONS: Visual changes in left eye. CLINICAL DATA: This is the patient's initial encounter. Patient reports that signs and symptoms have been present for 1 day and indicates a pain score of 0/10. MEDICAL/SURGICAL HISTORY: Hypertension. Stroke. None. RADIATION DOSE: 9.71 CTDI (mGy) ; Combined studies COMPARISON: [facility], [place] CAROTID ARTERIES, 03/26/2016. . TECHNIQUE: Volumetric scanning was performed using a multirow detector CT scanner during bolus infus ion of 85 ml Omnipaque 350 (iohexol) nonionic water-soluble contrast as a cumulative dose for multip le exams. The data was postprocessed with a variety of visualization algorithms including full-volu me maximum intensity projection, multiplanar sliding thin-slab reformation, curved-planar reformation , and surface-rendering techniques. Using automated exposure control and adjustment of the mA and/or kV according to patient size, radiation dose was kept as low as reasonably achievable to obtain opti mal diagnostic quality images. DICOM format image data is available electronically for review and co mparison. Percent stenosis is calculated using the diameter of the stenotic region over the diameter of the nor mal distal internal carotid artery. FINDINGS: Aortic Arch: There is a three-vessel origin of the great vessels from the aorta. No evidence of ost ial narrowing Right Carotid: Eccentric calcified plaque in the distal common carotid artery with resultant less th an 10% stenosis.. Bulky densely calcified plaque extending from the very distal carotid bulb to the o rigin of the internal carotid artery with a tandem eccentric calcified plaque slightly more distally. There are resultant tandem 35-40% stenoses. Internal carotid artery is otherwise patent to the skull base. The external carotid artery is intact. Left Carotid: The common carotid artery is intact. Status post left carotid endarterectomy. No hemod ynamically significant stenosis. The external carotid artery is intact. Vertebrals: The vertebral arteries are slightly asymmetric with dominant right vertebral artery. No stenotic lesions are seen. General Findings: Lung apices are clear. Thyroid is unremarkable by CT. No significant adenopathy. CONCLUSION: 1. Status post left carotid endarterectomy without hemodynamically significant stenosis. 2. Eccentric densely calcified plaque extending from the right carotid bulb to the origin of the int ernal carotid artery and in the proximal right internal carotid artery with resultant tandem 35-40% s tenoses. 3. Dominant right vertebral artery without significant vertebral artery stenosis. Electronically signed by: Bertram Pollard MD 06/05/2018 6:23 PM EDT
--- NOTE | 2018-06-05 18:42 | CT ---
EXAM DATE: 06/05/2018 4:25 PM EDT AGE/SEX: 83 years / Male INDICATIONS: Visual changes in left eye. CLINICAL DATA: This is the patient's initial encounter. Patient reports that signs and symptoms have been present for 1 day and indicates a pain score of 0/10. MEDICAL/SURGICAL HISTORY: Hypertension. Stroke. None. RADIATION DOSE: 9.71 CTDI (mGy) ; Combined studies [place] [facility] [place]05/2018. . TECHNIQUE: Volumetric scanning was performed using a multi-row detector CT scanner during bolus infu omar of 85 ml Omnipaque 350 (iohexol) nonionic water-soluble contrast as a cumulative dose for multi ple exams. The data was post processed with a variety of visualization algorithms including full vo lume maximum intensity projection, multi-planar sliding thin slab reformation, curved planar reformat ion, and surface rendering techniques. Using automated exposure control and adjustment of the mA and /or kV according to patient size, radiation dose was kept as low as reasonably achievable to obtain o ptimal diagnostic quality images. DICOM format image data is available electronically for review and comparison. FINDINGS: Anterior Circulation: Intracranial Carotid Arteries: Patent. JOSUE: There is no evidence for aneurysm, vessel truncation or stenosis, and no evidence for vascular m alformation. MCA: There is no evidence for aneurysm, vessel truncation or stenosis, and no evidence for vascular m alformation. Posterior Circulation: Distal Vertebral Arteries: Distal vertebral arteries are nearly symmetrical. Eccentric calcified plaq ue in the distal vertebral arteries bilaterally with focal severe stenosis of the left distal vertebr al artery and second tandem concentric moderate stenosis at the vertebrobasilar junction. Basilar Artery: There is no evidence for aneurysm, vessel truncation or stenosis, and no evidence for vascular malformation. PATIENT TRANSITION SPECIALIST and Cerebellar Branches: There is no evidence for aneurysm, vessel truncation or stenosis, and no evidence for vascular malformation. CONCLUSION: 1. No significant stenosis or large vessel occlusion in the anterior circulation. 2. 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 Electronically signed by: Bertram Pollard MD 06/05/2018 6:40 PM EDT
[2018-06-05] MEDS ORDERED: MethylPREDNISolone Sod Succinate Inj 125 MG/2 ML Vial IV.PUSH ONE (19:18)
[2018-06-05] MEDS ORDERED: Heparin - SQ 10,000 UNITS/ML Vial SQ ONE (19:18)
[2018-06-05] MEDS ORDERED: Bisacodyl 10 MG Supp RECTAL PRN (19:31)
[2018-06-05] MEDS ORDERED: Acetaminophen 325 MG Tablet PO PRN (19:31)
--- NOTE | 2018-06-05 19:37 | P.HPIM ---
History of Present Illness Primary Care Physician: Yaw Collins MD History of Present Illness: This is an 83-year-old male with a PMH of HTN, Hyperlipidemia, Vertigo, h/o Left CEA and h/o CVA who was brought to the ER by Daughter secondary to transient left vision loss. Pt notes acute left-sided vision loss earlier this afternoon lasting approx 30min, now completely resolved. Denies motor weakness , slurred speech, facial droop or lid lag. Follows w/ Dr. Platt for h/o CVA, on ASA and Plavix at home, compliant w/ medications. CT Head w/ no acute findings. CTA Head w/ severe stenosis left vertebral artery, CTA Neck w/ previous left CEA, no significant stenosis, right carotid stenosis 35-40%. Dr. Chapman consulted by ER physician, recommendation for Aggrenox in place of ASA/ Plavix and Heparin sq x1. Pt notes chronic vertigo since h/o CVA 18yrs ago, but notes symptoms slightly worse over the last 3-4 months. - Diagnosis (1) TIA (transient ischemic attack) (2) Vertigo (3) Carotid stenosis Review of Systems PAST FAMILY HISTORY: Reviewed. No h/o DM or CAD All other systems reviewed negative except as stated in HPI [facility] - History History Provided By: Patient - Medical History Medical History: Medical History (Last Reviewed 06/05/18 @ 14:53 by Dayana De Jesus) CVA (cerebral vascular accident) HTN (hypertension) Hypercholesteremia Kidney stones Spontaneous pneumothorax - Surgical History Surgical History: Surgical History (Last Reviewed 06/05/18 @ 14:53 by Dayana De Jesus) History of cholecystectomy History of hernia repair History of lithotripsy History of tonsillectomy and adenoidectomy - Tobacco History Second Hand Smoke Exposure: No Tobacco Use In Past 30 Days: No Smoking Status: Never smoker - Alcohol History How Often Do You Have a Drink Containing Alcohol: Never - Substance Use History Substance History: No History of Abuse - Travel History Recent Travel in the [place] Within the Last 8 Weeks: No Recent Travel Out of the Country Within the Last 8 Weeks: No - Immunization History Tetanus Immunization: Unsure Medications and Allergies Active Medications: Active Medications Acetaminophen (Tylenol) 650 mg PO Q4H PRN PRN Reason: Temp > 100.4 Al Hydroxide/Mg Hydroxide (Milk Of Magnesia Liq) 30 ml PO Q12H PRN PRN Reason: Mild Constipation Bisacodyl (Dulcolax Supp) 10 mg RECTAL DAILY PRN PRN Reason: SEVERE CONSITIPATION Dipyridamole/Aspirin (Aggrenox) 1 cap PO ONCE TERRY Dipyridamole/Aspirin (Aggrenox) 1 cap PO Q12HR [facility] Sodium Chloride (Ns Inj) 1,000 mls @ 100 mls/hr IV.CONT .Q10H TERRY Lactulose (Lactulose Liq) 30 ml PO DAILY PRN PRN Reason: SEVERE CONSITIPATION Non-Formulary Medication (Escitalopram Oxalate [Escitalopram Oxalate]) 5 mg PO DAILY [facility] Non-Formulary Medication (Pitavastatin Calcium [Livalo]) 2 mg PO DAILY [facility] Ondansetron HCl (Zofran Inj) 4 mg IV.PUSH Q6H PRN PRN Reason: NAUSEA OR VOMITING Pantoprazole Sodium (Protonix) 40 mg PO DAILY [facility] Senna/Docusate Sodium (Keli-Colace) 1 tab PO BID [facility] Sennosides (Senokot) 17.2 mg PO Q12H PRN PRN Reason: Moderate Constipation Allergies Allergy/AdvReac Type Severity Reaction Status Date / Time atorvastatin Allergy Severe "STATINS" Verified 06/05/18 15:58 penicillin G Allergy Severe Itching Verified 06/05/18 15:58 shellfish derived Allergy Severe Nausea Verified 06/05/18 15:58 meclizine Allergy Intermediate VOMIT Verified 06/05/18 15:58 Sulfa (Sulfonamide Allergy Intermediate HIVES Verified 06/05/18 15:58 Antibiotics) Home Medications Medication Instructions Recorded Confirmed Type aspirin [Aspirin Childrens] 81 mg PO DAILY 05/01/18 06/05/18 History clopidogrel 75 mg PO DAILY 05/01/18 06/05/18 History escitalopram oxalate 5 mg PO DAILY 05/01/18 06/05/18 History pantoprazole 40 mg PO DAILY 05/01/18 06/05/18 History pitavastatin calcium [Livalo] 2 mg PO DAILY 05/01/18 06/05/18 History vit B6-mag cit,oxid-potass cit 2 tab PO BID 06/05/18 06/05/18 History [Theralith XR] Exam Vital signs: Vital Signs 06/05/18 13:58 06/05/18 14:00 06/05/18 15:27 Temperature 98.2 F Pulse Rate 78 74 75 Respiratory Rate 20 16 Blood Pressure 124/59 L 136/64 Pulse Oximetry 94 L 94 L 06/05/18 16:00 06/05/18 18:37 Temperature Pulse Rate 70 68 Respiratory Rate 16 20 Blood Pressure 111/53 L 127/60 Pulse Oximetry 94 L 92 L Intake & Output 06/05/18 06/05/18 06/06/18 06:59 18:59 06:59 Weight 58.967 kg Narrative: PE: GENERAL: Extremely pleasant elderly white male in no acute distress. Mild slurring, patient and daughter states baseline when he is tired. SKIN: Focused skin assessment warm and dry. HEENT: PERRLA, EOMI. No scleral icterus or conjunctival pallor. No lid lag or facial droop. CARDIOVASCULAR: Regular rate and rhythm. No obvious murmurs to auscultation. No chest tenderness to palpation. RESPIRATORY: No obvious rhonchi or wheezing. Clear to auscultation. Breath sounds equal bilaterally. GASTROINTESTINAL: Abdomen soft, non-tender, nondistended. BS normal. MUSCULOSKELETAL: Extremities without clubbing, cyanosis, or edema. No obvious deformities. NEUROLOGICAL: Awake, alert and oriented x4. No focal neurologic deficits. Moving both upper and lower extremities spontaneously. PSYCHIATRIC: Appropriate mood and affect. Insight and judgment normal. Results - Labs CBC & Chem 7: 06/05/18 15:15 06/05/18 15:15 Labs: Short CBC 06/05/18 Range/Units 15:15 WBC 5.6 (4.0-11.0) th/mm3 Hgb 15.2 (13.0-17.0) gm/dL Hct 45.9 (39.0-51.0) % Plt Count 175 (150-450) th/mm3 BMP 06/05/18 15:15 Sodium 141 Potassium 4.6 Chloride 110 H Carbon Dioxide 25.4 BUN 21 H Creatinine 1.00 Calcium 8.3 L - Imaging Impressions Head CTA 06/05/18 15:08 CONCLUSION: 1. No significant stenosis or large vessel occlusion in the anterior circulation. 2. 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 Neck CTA 06/05/18 15:08 CONCLUSION: 1. Status post left carotid endarterectomy without hemodynamically significant stenosis. 2. Eccentric densely calcified plaque extending from the right carotid bulb to the origin of the internal carotid artery and in the proximal right internal carotid artery with resultant tandem 35-40% stenoses. 3. Dominant right vertebral artery without significant vertebral artery stenosis. Head CT 06/05/18 17:03 CONCLUSION: 1. No acute findings. 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 No change from May 01. . Caprini VTE Risk Assessment Caprini VTE Risk Assessment: No/Low Risk (score <= 1) Caprini Risk Assessment Model: Point Value = 1 Point Value = 2 Point Value = 3 Point Value = 5 Age 41-60 Minor surgery BMI > 25 kg/m2 Swollen legs Varicose veins or History of unexplained or recurrent spontaneous Oral contraceptives or hormone replacement Sepsis (< 1 month) Serious lung disease, including pneumonia (< 1 month) Abnormal pulmonary function Acute myocardial infarction Congestive heart failure (< 1 month) History of inflammatory bowel disease Medical patient at bed rest Age 61-74 Arthroscopic surgery Major open surgery (> 45 min) Laparoscopic surgery (> 45 min) Malignancy Confined to bed (> 72 hours) Immobilizing plaster cast Central venous access Age >= 75 History of VTE Family history of VTE Factor V Leiden Prothrombin [id number] Lupus anticoagulant Anticardiolipin antibodies Elevated serum homocysteine Heparin-induced thrombocytopenia Other congenital or acquired thrombophilia Stroke (< 1 month) Elective arthroplasty Hip, pelvis, or leg fracture Acute spinal cord injury (< 1 month) Prophylaxis Regimen: Total Risk Factor Score Risk Level Prophylaxis Regimen 0-1 Low Early ambulation 2 Moderate Order ONE of the following: *Sequential Compression Device (SCD) *Heparin 5000 units SQ BID 3-4 Higher Order ONE of the following medications: *Heparin 5000 units SQ TID *Enoxaparin/Lovenox 40 mg SQ daily (WT < 150 kg, CrCl > 30 mL/min) *Enoxaparin/Lovenox 30 mg SQ daily (WT < 150 kg, CrCl > 10-29 mL/min) *Enoxaparin/Lovenox 30 mg SQ BID (WT < 150 kg, CrCl > 30 mL/min) AND/OR *Sequential Compression Device (SCD) 5 or more Highest Order ONE of the following medications: *Heparin 5000 units SQ TID (Preferred with Epidurals) *Enoxaparin/Lovenox 40 mg SQ daily (WT < 150 kg, CrCl > 30 mL/min) *Enoxaparin/Lovenox 30 mg SQ daily (WT < 150 kg, CrCl > 10-29 mL/min) *Enoxaparin/Lovenox 30 mg SQ BID (WT < 150 kg, CrCl > 30 mL/min) AND *Sequential Compression Device (SCD) Assessment and Plan - Assessment (1) TIA (transient ischemic attack) Code(s): G45.9 - Transient cerebral ischemic attack, unspecified Status: Acute (2) Vertigo Code(s): R42 - Dizziness and giddiness Status: Acute (3) Carotid stenosis Code(s): I65.29 - Occlusion and stenosis of unspecified carotid artery Status : Acute - Plan A/P: 1. TIA: h/o CVA, now w/ acute/transient left vision loss lasting approx 30min , symptoms completely resolved. CT Head w/ no acute findings, CTA Head w/ stenosis left vertebral artery, CTA Neck w/ right carotid stenosis 35-40%. Follows w/ Dr. Platt, Dr. Chapman consulted, recommendation for Aggrenox in place of ASA/Plavix and Heparin sq x1. Will admit for Observation, Neuro Checks , IVF for hydration, Neurology eval in am. 2. Vertigo: Acute on Chronic, h/o chronic vertigo x18yrs since previous CVA, now w/ progressive symptoms over the last 3-4 months, notes daily vertigo when "spinning" out of bed. PT for eval/tx. Continue Aggrenox as above. 3. Right Carotid Stenosis: H/o Left Carotid Stenosis s/p Left CEA, CTA Neck w / no stenosis left, +right stenosis 35-40%. Will need Vascular Sx eval as outpatient to monitor right carotid stenosis. 4. DVT Prophylaxis: SCD/Valentin 5. Social work for d/c planning as needed. 6. Case discussed w/ ER physician at length, labs/records/imaging reviewed by me. (3) Carotid stenosis Qualifiers: Laterality: right Qualified Code(s): I65.21 - Occlusion and stenosis of right carotid artery
[2018-06-05] MEDS: Sod Chloride 0.9% Inj 1,000 ML IV.CONT SCH (20:01)
[2018-06-05] MEDS: Senna/Docusate Sodium 8.6/50 MG Tablet PO SCH (22:46)
[2018-06-06] MEDS: Senna/Docusate Sodium 8.6/50 MG Tablet PO SCH ×2 (08:19→20:31)
[2018-06-06] MEDS ORDERED: Escitalopram 10 MG Tablet PO SCH (09:00)
[2018-06-06] MEDS ORDERED: PITAVASTATIN CALCIUM 2 MG PO SCH ×2 (09:00→18:00)
[2018-06-06 09:49] LABS: Baso % (Auto) 0.1 % (0.0-2.0); Hematocrit 41.6 % (39.0-51.0); Hemoglobin 14.1 gm/dL (13.0-17.0); Lymph # (Auto) 0.6 th/mm3 (1.0-4.8); Lymph % (Auto) 9.7 % (9.0-44.0); Mean Corpuscular HGB Conc 33.8 % (32.0-36.0); Mean Corpuscular Hemoglobin 31.4 pg (27.0-34.0); Mean Corpuscular Volume 92.8 fL (80.0-100.0); Mean Platelet Volume 10.3 fL (7.0-11.0); Mono # (Auto) 0.1 th/mm3 (0.0-0.9); Mono % (Auto) 1.7 % (0.0-8.0); Neut # (Auto) 5.9 th/mm3 (1.8-7.7); Neut % (Auto) 88.5 % (16.0-70.0); Platelet Count 165 th/mm3 (150-450); Red Blood Count 4.49 mil/mm3 (4.50-5.90); Red Cell Distribution Width 13.8 % (11.6-17.2); White Blood Count 6.7 th/mm3 (4.0-11.0)
[2018-06-06] MEDS: Sod Chloride 0.9% Inj 1,000 ML IV.CONT SCH ×2 (09:58→17:21)
[2018-06-06 10:03] LABS: Albumin 2.9 g/dL (3.4-5.0); Anion Gap 10 meq/L (5-15); Aspartate Aminotransferase 18 U/L (15-37); Blood Urea Nitrogen 18 mg/dL (7-18); Calcium 7.8 mg/dL (8.5-10.1); Carbon Dioxide 23.3 meq/L (21.0-32.0); Chloride 111 meq/L (98-107); Cholesterol 162 mg/dL (120-200); Glomerular Filtration Rate 84 mL/min (>89); Glucose,Random 134 mg/dL (74-106); Potassium 4.1 meq/L (3.5-5.1); Sodium 144 meq/L (136-145); Triglycerides 62 mg/dL (42-150)
[2018-06-06 10:08] LABS: Alanine Aminotransferase 31 U/L (12-78); Alkaline Phosphatase 61 U/L (45-117); Chol/HDL Ratio 2.79 Ratio; HDL Cholesterol 57.9 mg/dL (40.0-60.0); LDL Cholesterol,Calculated 92 mg/dL (0-99); Total Protein 6.2 g/dL (6.4-8.2)
--- NOTE | 2018-06-06 11:59 | P.PNIM ---
Subjective Interval history: Follow-up with HTN, Hyperlipidemia, Vertigo, h/o Left CEA and h/o CVA, transient left vision loss. Patient seen and examined, laying in bed, denies any pain or shortness of breath, denies any headache or dizziness. Patient stated was complaining about vertigo on admission. But at the moment he do not have any dizziness. Denies any taking any medication for vertigo. Family in the room, came to be her his daughter and address concerns on patient's left hip pain which is chronic and getting worse, patient denies any pain at this time. Stated only have pain when walking on it. Patient stated he uses a cane to walk. Patient discussed his history of CVA and is getting worse came in because of the problem with the left eyes vision, however denies at the moment. Patient denies any pain at the moment, chest pain, headache, or shortness of breath. Patient denies any abdominal pain, nausea, vomiting, diarrhea or constipation. Patient denies any fever or chills. Around 1120 nurse address concern about patient complaining of chest pain episode that is relieved by itself after 10 minutes. Patient seen and examined again laying in bed stated that pain started when he was by the window walking to his bed and had a pain on his chest without any shortness of breath. Patient states that he also have pain on the left neck at that time stated now it is 90% resolved. Patient denies any pain or weakness on arms and shoulder, denies any association with nausea or vomiting, denies any history of heart attack, MS, or episodes of chest pain before. Physical Exam Vital signs: Vital Signs 06/05/18 13:58 06/05/18 14:00 06/05/18 15:27 Temperature 98.2 F Pulse Rate 78 74 75 Respiratory Rate 20 16 Blood Pressure 124/59 L 136/64 Pulse Oximetry 94 L 94 L 06/05/18 16:00 06/05/18 18:37 06/05/18 21:15 Temperature 97.8 F Pulse Rate 70 68 78 Respiratory Rate 16 20 18 Blood Pressure 111/53 L 127/60 132/64 Pulse Oximetry 94 L 92 L 93 L 06/05/18 23:55 06/06/18 00:00 06/06/18 04:00 Temperature 97.8 F 97.8 F Pulse Rate 72 73 80 Respiratory Rate 18 20 Blood Pressure 116/58 L 112/55 L Pulse Oximetry 90 L 90 L 06/06/18 04:06 06/06/18 08:00 06/06/18 09:00 Temperature Pulse Rate 78 82 82 Respiratory Rate Blood Pressure Pulse Oximetry Intake & Output 06/05/18 06/06/18 06/06/18 18:59 06:59 18:59 Intake Total 800 / 800 Output Total 200 / 200 Balance -200 / -200 800 / 800 Weight 58.967 kg Intake: IV 800 / 800 NS Inj 1,000 ML @ 100 mls/hr IV 800 / 800 .CONT .Q10H TERRY Rx#:[id number] Output: Urine 200 / 200 Other: # Voids 3 Narrative: GENERAL: Well-developed, well-nourished, male in no acute distress. SKIN: Warm and dry. HEAD: Atraumatic. Normocephalic. EYES: Pupils equal and round. No scleral icterus. No injection or drainage. Wearing eyeglasses ENT: No nasal bleeding or discharge. Mucous membranes pink and moist. NECK: Trachea midline. No JVD. CARDIOVASCULAR: Regular rate and rhythm. RESPIRATORY: No accessory muscle use. Clear to auscultation. Breath sounds equal bilaterally. GASTROINTESTINAL: Abdomen soft, non-tender, nondistended. Hepatic and splenic margins not palpable. MUSCULOSKELETAL: Extremities without clubbing, cyanosis, or edema. No obvious deformities. NEUROLOGICAL: Awake and alert. No obvious cranial nerve deficits. Generalized weakness with right-sided slight hemiparesis. Normal speech with mild slurring PSYCHIATRIC: Appropriate mood and affect; insight and judgment normal. Results - Labs CBC & Chem 7: 06/06/18 07:30 06/06/18 07:30 Laboratory Results - last 24 hr 06/05/18 06/05/18 06/05/18 15:15 15:15 15:15 WBC 5.6 RBC 4.86 Hgb 15.2 Hct 45.9 MCV 94.5 MCH 31.3 MCHC 33.1 RDW 13.9 Plt Count 175 MPV 10.4 Neut % (Auto) 62.2 Lymph % (Auto) 18.4 Pine % (Auto) 11.2 H Eos % (Auto) 7.2 H Baso % (Auto) 1.0 Neut # (Auto) 3.5 Lymph # (Auto) 1.0 Pine # (Auto) 0.6 Eos # (Auto) 0.4 Baso # (Auto) 0.1 WBC Differential . Differential Comment Auto diff final ESR Sodium 141 Potassium 4.6 Chloride 110 H Carbon Dioxide 25.4 Anion Gap 6 BUN 21 H Creatinine 1.00 Estimated GFR 71 L Random Glucose 116 H Calcium 8.3 L Total Bilirubin AST ALT Alkaline Phosphatase Troponin I C-Reactive Protein Less than 0.29 Total Protein Albumin Triglycerides Cholesterol LDL Cholesterol, Calc HDL Cholesterol Cholesterol/HDL Ratio 06/05/18 06/06/18 06/06/18 15:15 00:40 07:30 WBC 6.7 RBC 4.49 L Hgb 14.1 Hct 41.6 MCV 92.8 MCH 31.4 MCHC 33.8 RDW 13.8 Plt Count 165 MPV 10.3 Neut % (Auto) 88.5 H Lymph % (Auto) 9.7 Pine % (Auto) 1.7 Eos % (Auto) 0.0 Baso % (Auto) 0.1 Neut # (Auto) 5.9 Lymph # (Auto) 0.6 L Pine # (Auto) 0.1 Eos # (Auto) 0.0 Baso # (Auto) 0.0 WBC Differential . Differential Comment Auto diff final ESR 3 Sodium Potassium Chloride Carbon Dioxide Anion Gap BUN Creatinine Estimated GFR Random Glucose Calcium Total Bilirubin AST ALT Alkaline Phosphatase Troponin I Less than 0.02 L C-Reactive Protein Total Protein Albumin Triglycerides Cholesterol LDL Cholesterol, Calc HDL Cholesterol Cholesterol/HDL Ratio 06/06/18 07:30 WBC RBC Hgb Hct MCV MCH MCHC RDW Plt Count MPV Neut % (Auto) Lymph % (Auto) Pine % (Auto) Eos % (Auto) Baso % (Auto) Neut # (Auto) Lymph # (Auto) Pine # (Auto) Eos # (Auto) Baso # (Auto) WBC Differential Differential Comment ESR Sodium 144 Potassium 4.1 Chloride 111 H Carbon Dioxide 23.3 Anion Gap 10 BUN 18 Creatinine 0.87 Estimated GFR 84 L Random Glucose 134 H Calcium 7.8 L Total Bilirubin 0.3 AST 18 ALT 31 Alkaline Phosphatase 61 Troponin I Less than 0.02 L C-Reactive Protein Total Protein 6.2 L Albumin 2.9 L Triglycerides 62 Cholesterol 162 LDL Cholesterol, Calc 92 HDL Cholesterol 57.9 Cholesterol/HDL Ratio 2.79 - Imaging Impressions Head CTA 06/05/18 15:08 CONCLUSION: 1. No significant stenosis or large vessel occlusion in the anterior circulation. 2. 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 Neck CTA 06/05/18 15:08 CONCLUSION: 1. Status post left carotid endarterectomy without hemodynamically significant stenosis. 2. Eccentric densely calcified plaque extending from the right carotid bulb to the origin of the internal carotid artery and in the proximal right internal carotid artery with resultant tandem 35-40% stenoses. 3. Dominant right vertebral artery without significant vertebral artery stenosis. Head CT 06/05/18 17:03 CONCLUSION: 1. No acute findings. 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 No change from May 01. . Assessment and Plan - Assessment (1) TIA (transient ischemic attack) Code(s): G45.9 - Transient cerebral ischemic attack, unspecified Status: Acute (2) Vertigo Code(s): R42 - Dizziness and giddiness Status: Acute (3) Carotid stenosis Code(s): I65.29 - Occlusion and stenosis of unspecified carotid artery Status : Acute - Plan This is an 83-year-old male with a PMH of HTN, Hyperlipidemia, Vertigo, h/o Left CEA and h/o CVA who was brought to the ER by Daughter secondary to transient left vision loss. Pt notes acute left-sided vision loss earlier this afternoon lasting approx 30min, now completely resolved. Denies motor weakness , slurred speech, facial droop or lid lag. Follows w/ Dr. Platt for h/o CVA, on ASA and Plavix at home, compliant w/ medications. CT Head w/ no acute findings. CTA Head w/ severe stenosis left vertebral artery, CTA Neck w/ previous left CEA, no significant stenosis, right carotid stenosis 35-40%. Dr. Chapman consulted by ER physician, recommendation for Aggrenox in place of ASA/ Plavix and Heparin sq x1. Pt notes chronic vertigo since h/o CVA 18yrs ago, but notes symptoms slightly worse over the last 3-4 months. TIA, Hx of CVA - now w/ acute/transient left vision loss lasting approx 30min, symptoms completely resolved. - CT Head w/ no acute findings, -CTA Head: No significant stenosis or large vessel occlusion in the anterior circulation. 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 -CTA Neck : tatus post left carotid endarterectomy without hemodynamically significant stenosis. Eccentric densely calcified plaque extending from the right carotid bulb to the origin of the internal carotid artery and in the proximal right internal carotid artery with resultant tandem 35-40% stenoses. Dominant right vertebral artery without significant vertebral artery stenosis. - Neurologyy following : Dr. Platt/ Dr. Chapman consulted, recommendation for Aggrenox in place of ASA/Plavix and Heparin sq x1. -Neuro Checks - IVF for hydration Vertigo, Acute on Chronic, h/o chronic vertigo x18yrs since previous CVA, now w/ progressive symptoms over the last 3-4 months, notes daily vertigo when "spinning" out of bed. - PT for eval/tx. - Continue Aggrenox as above. Right Carotid Stenosis - H/o Left Carotid Stenosis s/p Left CEA, CTA Neck w/ no stenosis left, +right stenosis 35-40%. - Will need Vascular Sx eval as outpatient to monitor right carotid stenosis. \\ Chest pain, acute Likely atypical -No history of CP or Heart attack, Chest pain episode today while ambulating with associated left neck pain -No associated nausea, vomiting, diaphoresis, dizziness or shortness of breath -serial Troponin done negative, <0.02 x2, EKG sinus rhythm -stat troponin < 0.02 -Stat ECG, SR no acute ischemia noted on review -stat CXray ordered -CBC, BMP unremarkable -check magnesium level 2.2 -check TSH, HGbA1C pending DVT Prophylaxis: SCD/Valentin Social work for d/c planning as needed. Code Status: full code Discussed Condition With: patient, family/daughter and nurse (3) Carotid stenosis Qualifiers: Laterality: right Qualified Code(s): I65.21 - Occlusion and stenosis of right carotid artery
[2018-06-06 12:40] LABS: Magnesium 2.2 mg/dL (1.5-2.5)
[2018-06-06 12:48] LABS: Thyroid Stimulating Hormone 0.723 uIU/mL (0.358-3.740)
--- NOTE | 2018-06-06 14:56 | XR ---
EXAM DATE: 06/06/2018 2:06 PM EDT AGE/SEX: 83 years / Male INDICATIONS: Chest pains. CLINICAL DATA: This is the patient's subsequent encounter. Patient reports that signs and symptoms h ave been present for 2 days and indicates a pain score of 1/10. MEDICAL/SURGICAL HISTORY: Stroke. Hypertension. None. COMPARISON: [facility] [place], CHEST 1V SINGLE AP, 05/01/2018. . FINDINGS: A single AP view of the chest demonstrates the lungs to be symmetrically aerated without evidence of mass, infiltrate or effusion. Stable linear scarring in the left and right lower lung. The cardiomedi astinal contours are unremarkable. Osseous structures are intact. No significant changes compared t o the prior study. CONCLUSION: No acute intrathoracic disease. Electronically signed by: Neal Kennedy MD 06/06/2018 2:54 PM EDT
--- NOTE | 2018-06-06 14:58 | XR ---
EXAM DATE: 06/06/2018 12:00 AM EDT AGE/SEX: 83 years / Male INDICATIONS: Left hip pain. CLINICAL DATA: This is the patient's initial encounter. Patient reports that signs and symptoms have been present for 3 days and indicates a pain score of 1/10. MEDICAL/SURGICAL HISTORY: Hypertension. Stroke. None. COMPARISON: [facility], XR HIP AP AND LAT, LEFT, 08/30/2017. . FINDINGS: Bony structures are intact and in normal alignment. Joints are intact without dislocation or signifi cant arthropathy. Osseous density is osteopenic. Soft tissues are unremarkable. No radiopaque forei gn bodies seen. No new or significant changes are seen compared to the prior examination. CONCLUSION: Unremarkable and stable plain films of the left hip compared to the prior study. No acute fracture or joint dislocation. Electronically signed by: Nael Kennedy MD 06/06/2018 2:57 PM EDT
--- NOTE | 2018-06-06 15:56 | MB ---
cc: Rick Ralph MD, PhD DATE: 06/06/2018 REASON FOR CONSULTATION: TIA. HISTORY OF PRESENT ILLNESS: Mr. Hull is an 83-year-old man who 18 years ago had a left hemisphere stroke with right-sided weakness. He has had residual right-sided weakness. He is status post left carotid endarterectomy in 2006. Yesterday, he had an episode where he suddenly lost a portion of the vision in the left superior quadrant. He feels it is the left eye only. It resolved after several minutes. He had no other neurological symptoms. He has residual right-sided weakness, but this did not get any worse. He was on Plavix and aspirin. Last night, he was switched from that to Aggrenox and has been stable. He also notices some chest discomfort. 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 MEDICATIONS: 1. Protonix. 2. Docusate. 3. Zofran p.r.n. 4. Aggrenox 1 b.i.d. NEUROLOGICAL EXAMINATION: VITAL SIGNS: Blood pressure 117/57, pulse is 90, respirations 12, temperature 97 degrees. NEUROLOGIC: Higher cortical function: He is alert and oriented x3. Speech is normal. Cranial nerves are intact including visual yancey. Motor exam: He has mild right upper extremity weakness of 4/5. He has increased tone in the right arm. He is mildly weak in the right leg at 4/5. Normal strength in left arm and left leg. Reflexes are symmetric at 2 plus. IMAGING STUDIES: CT brain: There is a remote infarct in the lópez. No acute change present. CTA of the brain: Focal severe stenosis of the distal left vertebral artery with concentric stenosis of the left vertebral artery at the vertebrobasilar junction. The basilar artery itself is normal. CTA neck: Status post left carotid endarterectomy without significant stenosis, 35%-40% stenosis of the internal carotid artery on the right. Dominant right vertebral artery without significant vertebral stenosis. LABORATORY DATA: His white count is 6700, hemoglobin 14.1, hematocrit 41.6%, platelet count 165,000. ESR is 3. Sodium is 144, potassium 4.1, chloride 111, CO2 is 23.3. The BUN is 18, creatinine 0.87, GFR is 84, glucose is 134. AST 18, ALT 31. Cholesterol 162, LDL 92, HDL 57. IMPRESSION: Probable vertebrobasilar transient ischemic attack, now resolved. RECOMMENDATIONS: I agree with Aggrenox 1 b.i.d. Continue statin for his LDL. Recommend cardiology consultation for his chest discomfort. We will obtain an echocardiogram. Monitor cardiac telemetry to rule out atrial fibrillation. Rick Ralph MD, PhD VALDEZ/mallory , 03:26 PM , 03:33 PM
--- NOTE | 2018-06-06 16:32 | ECG ---
Date Performed: 06/05/2018 Time Performed: 14:19:00 PTAGE: 83 years EKG: Sinus rhythm NONSPECIFIC T-WAVE ABNORMALITY Since the previous tracing, no significant change noted BORDERLINE EC G PREVIOUS TRACING : 05/27/2018 07.36 DOCTOR: Chloe West Interpretating Date/Time 06/06/2018 16:31:10
--- NOTE | 2018-06-06 16:33 | ECG ---
Date Performed: 06/06/2018 Time Performed: 12:18:00 PTAGE: 83 years EKG: Sinus rhythm NONSPECIFIC T-WAVE ABNORMALITY Since the previous tracing, no significant change noted BORDERLINE EC G PREVIOUS TRACING : 06/05/2018 14.19 DOCTOR: Chloe West Interpretating Date/Time 06/06/2018 16:31:30
[2018-06-06 16:46] LABS: Hemoglobin A1c 5.9 % (4.3-6.0)
--- NOTE | 2018-06-06 19:10 | MR ---
EXAM DATE: 06/06/2018 5:13 PM EDT AGE/SEX: 83 years / Male INDICATIONS: CVA. CLINICAL DATA: This is the patient's initial encounter. Patient reports that signs and symptoms have been present for 2 days and indicates a pain score of 0/10. MEDICAL/SURGICAL HISTORY: Hypertension. Renal calculi. Cholecystectomy. Carotid endarterectom y. [place] [facility] [place]. . TECHNIQUE: Multiplanar, multisequence examination of the brain was performed without and with 5 ml Ga davist (gadobutrol) contrast as a single exam dose. FINDINGS: Cerebrum: Remote left basal ganglia lacunar infarct. Moderate diffuse cerebral atrophy. The ventricl es are normal for degree of atrophy. No evidence of midline shift, mass lesion, hemorrhage or acute infarction. No extraaxial fluid collections are seen. The pituitary gland and suprasellar cistern a re normal in configuration. White Matter: Moderate scattered periventricular and deep white matter T2 prolongation. Posterior Fossa: Redemonstration of remote infarct in the left brainstem with associated Wallerian de generation in the left cerebral peduncle. Cerebellum is intact. The 4th ventricle is midline. The ce rebellopontine angle is unremarkable. The cerebellar tonsils are normal in position. Diffusion Imaging: No focal areas of restricted diffusion are seen. No evidence of acute infarction . Extracranial: The visualized portions of the orbits and paranasal sinuses are unremarkable. Post Contrast: No abnormal areas of parenchymal or dural enhancement. No evidence of blood-brain ba rrier breakdown. CONCLUSION: 1. 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 2. Moderate periventricular ischemic white matter demyelination. 3. No acute abnormality. Specifically, no acute infarct, hemorrhage, or mass. Electronically signed by: Bertram Pollard MD 06/06/2018 7:09 PM EDT
[2018-06-06] MEDS ORDERED: Gadobutrol PF 7.5 MMOL/7.5 ML Vial (for RAD) IV.SIG ONE (19:31)
--- NOTE | 2018-06-06 23:03 | MB ---
cc: Santy Estrella DO DATE: 06/06/2018 REASON FOR CONSULTATION: TIA, chest pain. HISTORY OF PRESENT ILLNESS: Angel Luis Hull is a pleasant 83-year-old male who presented to [facility] Emergency Room due to neurological compromise. He states that he was eating lunch with his family and ended up having a bowel movement, without knowing it and never felt it happen. He also noticed that he had sudden loss of a portion of vision in his left superior quadrant. He only noticed it in his left eye. This resolved after a few minutes. He states that he had no other neurological symptoms. He does have some baseline residual right-sided weakness from a stroke 18 years ago. Apparently, today, he had gone up and used the restroom and upon coming out of the restroom, he noticed some fullness in his chest. He had no pressure, stabbing or burning within the chest. In seeing him, he is currently hemodynamically stable with no chest pain or shortness of breath. PAST MEDICAL HISTORY: 1. Peripheral artery disease. 2. History of CVA with residual right-sided weakness. 3. Hypertension. 4. Hyperlipidemia. 5. Kidney stones. PAST SURGICAL HISTORY: 1. Left carotid endarterectomy (2006). 2. Cholecystectomy. 3. Lithotripsy. 4. Tonsillectomy. ALLERGIES: 1. ATORVASTATIN. 2. PENICILLIN. 3. SHELLFISH. 4. MECLIZINE. 5. SULFA. MEDICATIONS: 1. Lexapro 5 mg daily. 2. Protonix 40 mg daily. 3. Plavix 75 mg daily. 4. Aspirin 81 mg daily. 5. Livalo 2 mg daily. 6. Theralith XR 2 tabs b.i.d. FAMILY HISTORY: Denies premature coronary artery disease or sudden cardiac within the family. SOCIAL HISTORY: Denies tobacco, alcohol or drug abuse. REVIEW OF SYSTEMS: Fourteen systems were reviewed including osteopathic. Pertinent positives and negatives above, otherwise negative. PHYSICAL EXAMINATION: VITAL SIGNS: Temperature 97.9, heart rate 90, blood pressure 117/57, respirations 12, pulse oximetry 96% on room air. GENERAL: The patient appears well, in no acute distress. Alert, awake and oriented x3. HEENT: Extraocular muscles intact. Mucous membranes moist. NECK: Supple. No JVD at 45 degrees. No carotid bruits heard bilaterally. Carotid upstroke is brisk in nature. HEART: Regular rate and rhythm. Positive first and second heart sounds with a I/ crescendo decrescendo murmur to the right sternal border. LUNGS: Clear to auscultation bilaterally. No wheezes, rales or rhonchi. ABDOMEN: Soft, nontender, nondistended. No organomegaly noted. EXTREMITIES: Show no clubbing, cyanosis or edema. Femoral and distal pulses are intact bilaterally. NEUROLOGIC: Residual right-sided weakness from previous stroke. Visual yancey appear intact. Cranial nerves 2-12 are grossly intact. SKIN: Warm, dry and intact. OSTEOPATHIC: No kyphoscoliosis, lordosis or paraspinal tender points. LABORATORY DATA: Hemoglobin 14.1, hematocrit 41.6, platelets 165. Potassium 4.1, BUN 18, creatinine 0.87. Troponin negative x3. Electrocardiogram (06/06/2018 at 12:18): Sinus rhythm, nonspecific ST-T wave changes. IMPRESSIONS: 1. Probable vertebrobasilar transient ischemic attack. 2. History of cerebrovascular accident with residual right-sided weakness. 3. Atypical chest pain. 4. Peripheral artery disease, status post left carotid endarterectomy (2006). 5. Hypertension. 6. Hyperlipidemia. RECOMMENDATIONS: 1. Mr. Hull appears to have suffered a TIA and has been seen by Neurology. 2. As with any possible ischemic stroke-like event, consideration will be made for rhythm analysis with a possible loop recorder. The patient is currently waiting to undergo MRI and depending on the results, he will be left n.p.o. tonight for further evaluation by Dr. Ross in the morning for considerations of a loop recorder to rule out atrial fibrillation as a possible cause long-term. 3. As far as his chest pain goes, this is atypical in nature for coronary insufficiency. He will continue to be watched inpatient and if further chest pains, reevaluated. 4. Would not plan on him undergoing an ischemic evaluation at this time due to his current neurological event. We will allow him to heal and reconsider this outpatient in the next 6-[address] Ross' discretion. He will continue on medical management at this time of his presumed coronary artery disease. 5. Further recommendations will be made based on the hospital course. Thank you for allowing me to see Angel Luis Hull. If there are any questions, please do not hesitate to call. DO DENISE Bates/ameena , 10:21 PM , 10:35 PM
[2018-06-07] MEDS: Sod Chloride 0.9% Inj 1,000 ML IV.CONT SCH ×2 (02:06→13:37)
[2018-06-07] MEDS: Senna/Docusate Sodium 8.6/50 MG Tablet PO SCH (08:25)
--- NOTE | 2018-06-07 10:26 | P.PN ---
Subjective Interval history: Follow-up with HTN, Hyperlipidemia, Vertigo, h/o Left CEA and h/o CVA, transient left vision loss, episode of chest pain 06/06. Patient reports overall feeling better and back to his normal self. He denies any further episodes of chest pain overnight or today. He reports his right-sided weakness is at his baseline from his stroke 18 years ago. He denies any visual changes, lightheadedness, dizziness, headache, or speech deficit. His loan documentation specialist is Dr. Ross, awaiting recommendations today. Physical Exam Vital signs: Vital Signs 06/06/18 16:00 06/06/18 20:46 06/07/18 00:00 Temperature 98.1 F 97.6 F Pulse Rate 86 73 80 Respiratory Rate 20 18 Blood Pressure 118/56 L 128/66 Pulse Oximetry 95 96 06/07/18 04:00 06/07/18 08:00 Temperature 97.9 F 97.9 F Pulse Rate 69 72 Respiratory Rate 18 22 Blood Pressure 128/60 159/67 H Pulse Oximetry 91 L 94 L Intake & Output 06/06/18 06/07/18 06/07/18 18:59 06:59 18:59 Intake Total 2780 / 2780 120 / 120 Balance 2780 / 2780 120 / 120 Intake: IV 1800 / 1800 NS Inj 1,000 ML @ 100 mls/hr IV 1800 / 1800 .CONT .Q10H TERRY Rx#:[id number] Oral 980 / 980 120 / 120 Other: # Voids 4 2 Date of Last Bowel Movement 06/05/18 # Bowel Movements 0 Narrative: GENERAL: Well-developed, well-nourished pleasant elderly male in no acute distress. SKIN: Warm and dry. HEENT: Atraumatic. Normocephalic. Pupils equal and round. Mucous membranes pink and moist. CARDIOVASCULAR: Regular rate and rhythm. No murmur appreciated. RESPIRATORY: No accessory muscle use. Clear to auscultation. Breath sounds equal bilaterally. GASTROINTESTINAL: Abdomen soft, non-tender, nondistended. Normoactive bowel sounds x4. MUSCULOSKELETAL: Extremities without clubbing, cyanosis, or edema. No obvious deformities. NEUROLOGICAL: Awake and alert. No obvious cranial nerve deficits. 4/5 strength RUE, 3/5 strength RLE with foot drop, has brace in place. 5/5 strength LUE/LLE. Normal speech. No obvious facial droop/lid lag. PSYCHIATRIC: Appropriate mood and affect; insight and judgment normal. Results - Labs CBC & Chem 7: 06/06/18 07:30 06/06/18 07:30 Laboratory Results - last 24 hr 06/06/18 06/06/18 06/06/18 07:30 07:30 12:08 Hemoglobin A1c 5.9 Magnesium 2.2 Troponin I Less than 0.02 L TSH 0.723 - Imaging Impressions Head CTA 06/05/18 15:08 CONCLUSION: 1. No significant stenosis or large vessel occlusion in the anterior circulation. 2. 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 Neck CTA 06/05/18 15:08 CONCLUSION: 1. Status post left carotid endarterectomy without hemodynamically significant stenosis. 2. Eccentric densely calcified plaque extending from the right carotid bulb to the origin of the internal carotid artery and in the proximal right internal carotid artery with resultant tandem 35-40% stenoses. 3. Dominant right vertebral artery without significant vertebral artery stenosis. Head CT 06/05/18 17:03 CONCLUSION: 1. No acute findings. 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 No change from May 01. . Head MRI 06/06/18 00:00 CONCLUSION: 1. 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 2. Moderate periventricular ischemic white matter demyelination. 3. No acute abnormality. Specifically, no acute infarct, hemorrhage, or mass. Hip X-Ray 06/06/18 00:00 CONCLUSION: Unremarkable and stable plain films of the left hip compared to the prior study. No acute fracture or joint dislocation. Chest X-Ray 06/06/18 14:06 CONCLUSION: No acute intrathoracic disease. Assessment and Plan - Assessment (1) TIA (transient ischemic attack) Code(s): G45.9 - Transient cerebral ischemic attack, unspecified Status: Acute (2) Vertigo Code(s): R42 - Dizziness and giddiness Status: Acute (3) Carotid stenosis Code(s): I65.29 - Occlusion and stenosis of unspecified carotid artery Status : Acute - Plan 83-year-old male with a PMH of HTN, Hyperlipidemia, Vertigo, h/o Left CEA and h/ o CVA who was brought to the ER by Daughter secondary to transient left vision loss. Pt notes acute left-sided vision loss earlier this afternoon lasting approx 30min, now completely resolved. Denies motor weakness, slurred speech, facial droop or lid lag. Follows w/ Dr. lPatt for h/o CVA, on ASA and Plavix at home, compliant w/ medications. CT Head w/ no acute findings. CTA Head w/ severe stenosis left vertebral artery, CTA Neck w/ previous left CEA, no significant stenosis, right carotid stenosis 35-40%. Dr. Chapman consulted by ER physician, recommendation for Aggrenox in place of ASA/Plavix and Heparin sq x1. Pt notes chronic vertigo since h/o CVA 18yrs ago, but notes symptoms slightly worse over the last 3-4 months. Acute TIA: with hx of CVA with residual right sided hemiparesis 3/5 strength. Now w/ acute/transient left vision loss lasting approx 30min, symptoms completely resolved. -CT Head reviewed w/ no acute findings -CTA Head reviewed, No significant stenosis or large vessel occlusion in the anterior circulation. 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 -CTA Neck showed s/p L CEA without hemodynamically significant stenosis. Right ICA with 35-40% stenoses. Dominant right vertebral artery without significant stenosis. -Brain MRI reviewed, no acute findings; shows Senescent changes with redemonstration of remote left basal ganglia and left brainstem infarcts -Neuro Checks, Monitor on telemetry -Given IVF for hydration -LDL 92, not at goal of less than 70, continue patient's statin -Consult PT, recommended patient to continue his outpatient physical therapy ; patient already has DME/walker/cane -Neurology consulted, recommended switch from ASA/plavix to Aggrenox, ordered echocardiogram Vertigo, Acute on Chronic: h/o chronic vertigo x18yrs since previous CVA, now w / progressive symptoms over the last 3-4 months, notes daily vertigo when "spinning" out of bed. -PT for eval/tx, continue outpatient PT at discharge -Continue Aggrenox as above. -Symptoms currently improved Right Carotid Stenosis -H/o Left Carotid Stenosis s/p Left CEA, CTA Neck w/ no stenosis left, + right stenosis 35-40%. -Outpatient f/up with Vascular Sx to monitor right carotid stenosis; no surgical intervention indicated at this time Chest pain, acute: atypical. No history of angina or CO. Chest pain episode while ambulating, no N/V/diaphoresis/SOB. -ACS ruled out with negative serial cardiac enzymes x3, EKG without acute ischemic changes -CBC, BMP unremarkable, magnesium 2.2, TSH wnl, HgbA1c 5.9 -chest pain now resolved -Consulted patient's loan documentation specialist Dr. Ross, recommends outpatient event monitor and nuclear stress test, cleared for discharge DVT Prophylaxis: On aggrenox; SCD/Valentin Discharge Planning: Discharge pending echocardiogram. PT recommending the patient continue his outpatient physical therapy upon discharge. Discharge patient to home with outpatient physical therapy Condition on discharge: Stable Heart Healthy Diet as tolerated Ad Tamika activity Rx written: Aggrenox Follow-up with primary care physician, loan documentation specialist Dr. Ross, and neurology Dr. Ralph (3) Carotid stenosis Qualifiers: Laterality: right Qualified Code(s): I65.21 - Occlusion and stenosis of right carotid artery
--- NOTE | 2018-06-07 12:03 | P.PNCA ---
Subjective Interval history: No CP, dyspnea, dizziness, palpitations. Medications and Allergies Active Medications: Active Medications Acetaminophen (Tylenol) 650 mg PO Q4H PRN PRN Reason: Temp > 100.4 Al Hydroxide/Mg Hydroxide (Milk Of Magnesia Liq) 30 ml PO Q12H PRN PRN Reason: Mild Constipation Bisacodyl (Dulcolax Supp) 10 mg RECTAL DAILY PRN PRN Reason: SEVERE CONSITIPATION Dipyridamole/Aspirin (Aggrenox) 1 cap PO ONCE TERRY Dipyridamole/Aspirin (Aggrenox) 1 cap PO Q12HR [facility] Last Admin: 06/07/18 08:25 Dose: Not Given Escitalopram Oxalate (Lexapro) 5 mg PO DAILY@1800 [facility] Sodium Chloride (Ns Inj) 1,000 mls @ 100 mls/hr IV.CONT .Q10H [facility] Last Admin: 06/07/18 02:06 Dose: 100 mls/hr Lactulose (Lactulose Liq) 30 ml PO DAILY PRN PRN Reason: SEVERE CONSITIPATION Ondansetron HCl (Zofran Inj) 4 mg IV.PUSH Q6H PRN PRN Reason: NAUSEA OR VOMITING Pantoprazole Sodium (Protonix) 40 mg PO DAILY [facility] Last Admin: 06/07/18 08:25 Dose: 40 mg Pom: (Pitavastatin Calcium [Livalo] 2 Mg) 0 each PO DAILY@1800 [facility] Last Admin: 06/06/18 19:12 Dose: 1 each Senna/Docusate Sodium (Keli-Colace) 1 tab PO BID [facility] Last Admin: 06/07/18 08:25 Dose: Not Given Sennosides (Senokot) 17.2 mg PO Q12H PRN PRN Reason: Moderate Constipation Allergies Allergy/AdvReac Type Severity Reaction Status Date / Time atorvastatin Allergy Severe "STATINS" Verified 06/05/18 15:58 penicillin G Allergy Severe Itching Verified 06/05/18 15:58 shellfish derived Allergy Severe Nausea Verified 06/05/18 15:58 meclizine Allergy Intermediate VOMIT Verified 06/05/18 15:58 Sulfa (Sulfonamide Allergy Intermediate HIVES Verified 06/05/18 15:58 Antibiotics) Home Medications Medication Instructions Recorded Confirmed Type aspirin [Aspirin Childrens] 81 mg PO DAILY 05/01/18 06/05/18 History clopidogrel 75 mg PO DAILY 05/01/18 06/05/18 History escitalopram oxalate 5 mg PO DAILY 05/01/18 06/05/18 History pantoprazole 40 mg PO DAILY 05/01/18 06/05/18 History pitavastatin calcium [Livalo] 2 mg PO DAILY 05/01/18 06/05/18 History vit B6-mag cit,oxid-potass cit 2 tab PO BID 06/05/18 06/05/18 History [Theralith XR] Physical Exam Vital signs: Vital Signs 06/06/18 16:00 06/06/18 20:46 06/07/18 00:00 Temperature 98.1 F 97.6 F Pulse Rate 86 73 80 Respiratory Rate 20 18 Blood Pressure 118/56 L 128/66 Pulse Oximetry 95 96 06/07/18 04:00 06/07/18 08:00 Temperature 97.9 F 97.9 F Pulse Rate 69 72 Respiratory Rate 18 22 Blood Pressure 128/60 159/67 H Pulse Oximetry 91 L 94 L Intake & Output 06/06/18 06/07/18 06/07/18 18:59 06:59 18:59 Intake Total 2780 / 2780 120 / 120 0 / 0 Balance 2780 / 2780 120 / 120 0 / 0 Intake: IV 1800 / 1800 NS Inj 1,000 ML @ 100 mls/hr IV 1800 / 1800 .CONT .Q10H [facility] Rx#:[id number] Oral 980 / 980 120 / 120 0 / 0 Other: # Voids 4 2 4 Date of Last Bowel Movement 06/05/18 # Bowel Movements 0 1 - Constitutional no acute distress - Routine Neck Exam Absent: JVD - Routine Respiratory Exam Present: CTA bilaterally - Routine Cardiovascular Exam Present: RRR, S1, S2. Absent: murmur, gallop - Routine Abdominal Exam Present: soft, normoactive bowel sounds. Absent: tenderness, organomegaly - Routine Extremities Exam Absent: cyanosis, clubbing, edema Results 06/06/18 07:30 06/06/18 07:30 Cardiac Enzymes 06/06/18 06/06/18 06/06/18 Range/Units 00:40 07:30 12:08 AST 18 (15-37) U/L Troponin I Less than 0.02 L Less than 0.02 L Less than 0.02 L (0.02-0.05) ng/mL Lipids 06/06/18 Range/Units 07:30 Triglycerides 62 (42-150) mg/dL Cholesterol 162 (120-200) mg/dL HDL Cholesterol 57.9 (40.0-60.0) mg/dL Cholesterol/HDL Ratio 2.79 Ratio CBC 06/05/18 06/06/18 Range/Units 15:15 07:30 WBC 5.6 6.7 (4.0-11.0) th/mm3 RBC 4.86 4.49 L (4.50-5.90) mil/mm3 Hgb 15.2 14.1 (13.0-17.0) gm/dL Hct 45.9 41.6 (39.0-51.0) % Plt Count 175 165 (150-450) th/mm3 Neut # (Auto) 3.5 5.9 (1.8-7.7) th/mm3 Lymph # (Auto) 1.0 0.6 L (1.0-4.8) th/mm3 Ralls # (Auto) 0.6 0.1 (0.0-0.9) th/mm3 Eos # (Auto) 0.4 0.0 (0.0-0.4) th/mm3 Baso # (Auto) 0.1 0.0 (0.0-0.2) th/mm3 Comprehensive Metabolic Panel 06/05/18 06/06/18 Range/Units 15:15 07:30 Sodium 141 144 (136-145) meq/L Potassium 4.6 4.1 (3.5-5.1) meq/L Chloride 110 H 111 H (98-107) meq/L Carbon Dioxide 25.4 23.3 (21.0-32.0) meq/L BUN 21 H 18 (7-18) mg/dL Creatinine 1.00 0.87 (0.60-1.30) mg/dL Calcium 8.3 L 7.8 L (8.5-10.1) mg/dL AST 18 (15-37) U/L ALT 31 (12-78) U/L Alkaline Phosphatase 61 (45-117) U/L Total Protein 6.2 L (6.4-8.2) g/dL Albumin 2.9 L (3.4-5.0) g/dL Intake and Output 06/06/18 06/07/18 06/07/18 22:59 06:59 14:59 Intake Total 2099 0 / 0 Balance 2099 0 / 0 Intake: IV 1000 / 1000 NS Inj 1,000 ML @ 100 mls/hr IV 1000 / 1000 .CONT .Q10H [facility] Rx#:[id number] Oral 1100 / 1100 0 / 0 Other: # Voids 4 2 4 Date of Last Bowel Movement 06/05/18 # Bowel Movements 0 1 - Imaging and Cardiology Imaging: Impressions Head CTA 06/05/18 15:08 CONCLUSION: 1. No significant stenosis or large vessel occlusion in the anterior circulation. 2. 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 Neck CTA 06/05/18 15:08 CONCLUSION: 1. Status post left carotid endarterectomy without hemodynamically significant stenosis. 2. Eccentric densely calcified plaque extending from the right carotid bulb to the origin of the internal carotid artery and in the proximal right internal carotid artery with resultant tandem 35-40% stenoses. 3. Dominant right vertebral artery without significant vertebral artery stenosis. Head CT 06/05/18 17:03 CONCLUSION: 1. No acute findings. 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 No change from May 01. . Head MRI 06/06/18 00:00 CONCLUSION: 1. 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 2. Moderate periventricular ischemic white matter demyelination. 3. No acute abnormality. Specifically, no acute infarct, hemorrhage, or mass. Hip X-Ray 06/06/18 00:00 CONCLUSION: Unremarkable and stable plain films of the left hip compared to the prior study. No acute fracture or joint dislocation. Chest X-Ray 06/06/18 14:06 CONCLUSION: No acute intrathoracic disease. Assessment and Plan - Assessment (1) TIA (transient ischemic attack) Code(s): G45.9 - Transient cerebral ischemic attack, unspecified Status: Acute Plan: Asked to consider loop recorder implantation to rule out atrial fibrillation. Often loop recorders have poor P wave sensitivity and benign rhythms like sinus with PACs will appear as if atrial fib. Recommend to start a 3 week monitor. Will set it up as an outpatient this week. (2) Chest pain Code(s): R07.9 - Chest pain, unspecified Status: Acute Plan: No further atypical CP. Cardiac enzymes negative for RI. EKG unremarkable. Recommend outpatient nuclear stress test. - Plan Code Status: full code Discussed Condition With: patient and daughter, at length (2) Chest pain Qualifiers: Chest pain type: unspecified Qualified Code(s): R07.9 - Chest pain, unspecified
[2018-06-07 13:14] VITALS: BP 150/67; PULSE 68; RESP 20; TEMP 97.6; O2SAT 95
--- NOTE | 2018-06-07 14:27 | ECHRPT ---
Indication: CVA/TIA CONCLUSIONS Normal left ventricular size. Wall thickness is normal. The left ventricular systolic function is n ormal with an estimated ejection fraction in the range of 60-65%. Normal wall motion. [id number] mitral valve regurgitation. Mild thickening of the aortic valve leaflets. Mild aortic valve regurgitation. There is trace to mild tricuspid valve regurgitation. BP: / HR: Rhythm: MEASUREMENTS (Male / Female) Normal Values Technical Quality: 2D ECHO LV Diastolic Diameter PLAX 4.8 cm 4.2 - 5.9 / 3.9 - 5.3 cm LV Systolic Diameter PLAX 2.9 cm IVS Diastolic Thickness 0.9 cm 0.6 - 1.0 / 0.6 - 0.9 cm LVPW Diastolic Thickness 1.0 cm 0.6 - 1.0 / 0.6 - 0.9 cm LV Relative Wall Thickness 0.4 RV Internal Dim ED PLAX 1.9 cm LVOT Diameter 1.5 cm Aortic Root Diameter 2.6 cm LA Systolic Diameter LX 3.2 cm 3.0 - 4.0 / 2.7 - 3.8 cm LV Ejection Fraction MOD 4C 46.5 % LV Ejection Fraction 4C AL 49.3 % M-MODE Aortic Root Diameter MM 3.7 cm LA Systolic Diameter MM 3.5 cm LA Ao Ratio MM 0.9 AV Cusp Separation MM 2.3 cm DOPPLER AV Peak Velocity 137.0 cm/s AV Peak Gradient 7.5 mmHg AI Peak Velocity 345.0 cm/s AI Peak Gradient 47.6 mmHg AI Pressure Half Time 322.0 ms LVOT Peak Velocity 95.8 cm/s LVOT Peak Gradient 3.7 mmHg AV Area Cont Eq pk 1.2 cm Mitral E Point Velocity 74.5 cm/s Mitral A Point Velocity 103.0 cm/s Mitral E to A Ratio 0.7 LV E' Lateral Velocity 8.4 cm/s Mitral E to LV E' Lateral Ratio 8.9 LV E' Septal Velocity 6.3 cm/s Mitral E to LV E' Septal Ratio 11.8 TR Peak Velocity 282.0 cm/s TR Peak Gradient 31.8 mmHg Right Atrial Pressure 10.0 mmHg Pulmonary Artery Systolic Pressu 41.8 mmHg Right Ventricular Systolic Press 41.8 mmHg PV Peak Velocity 106.0 cm/s PV Peak Gradient 4.5 mmHg FINDINGS LEFT VENTRICLE Normal left ventricular size. Wall thickness is normal. The left ventricular systolic function is normal with an estimated ejection fraction in the range of 60-65%. Normal wall motion. RIGHT VENTRICLE Normal right ventricular size and systolic function. LEFT ATRIUM The left atrial size is normal. RIGHT ATRIUM The right atrial size is normal. ATRIAL SEPTUM Normal atrial septal thickness without atrial level shunting by limited color doppler interrogation. AORTA The aortic root and proximal ascending aorta are normal in size on limited imaging. MITRAL VALVE [id number] mitral valve regurgitation. AORTIC VALVE Mild thickening of the aortic valve leaflets. Mild aortic valve regurgitation. TRICUSPID VALVE There is trace to mild tricuspid valve regurgitation. PULMONARY VALVE No pulmonary valve regurgitation or stenosis. VESSELS The inferior vena cava is normal in size. PERICARDIUM No pericardial effusion. Ace Ross MD (Electronically Signed) Final Date:07 June 2018 14:23
--- NOTE | 2018-06-07 16:08 | P.PNNEU ---
Subjective Subjective Comments: No new neurologic sx. Active Medications: Active Medications Acetaminophen (Tylenol) 650 mg PO Q4H PRN PRN Reason: Temp > 100.4 Al Hydroxide/Mg Hydroxide (Milk Of Magnesia Liq) 30 ml PO Q12H PRN PRN Reason: Mild Constipation Bisacodyl (Dulcolax Supp) 10 mg RECTAL DAILY PRN PRN Reason: SEVERE CONSITIPATION Dipyridamole/Aspirin (Aggrenox) 1 cap PO ONCE TERRY Dipyridamole/Aspirin (Aggrenox) 1 cap PO Q12HR [facility] Last Admin: 06/07/18 08:25 Dose: Not Given Escitalopram Oxalate (Lexapro) 5 mg PO DAILY@1800 [facility] Sodium Chloride (Ns Inj) 1,000 mls @ 100 mls/hr IV.CONT .Q10H [facility] Last Infusion: 06/07/18 13:37 Dose: Infused Lactulose (Lactulose Liq) 30 ml PO DAILY PRN PRN Reason: SEVERE CONSITIPATION Ondansetron HCl (Zofran Inj) 4 mg IV.PUSH Q6H PRN PRN Reason: NAUSEA OR VOMITING Pantoprazole Sodium (Protonix) 40 mg PO DAILY [facility] Last Admin: 06/07/18 08:25 Dose: 40 mg Pom: (Pitavastatin Calcium [Livalo] 2 Mg) 0 each PO DAILY@1800 [facility] Last Admin: 06/06/18 19:12 Dose: 1 each Senna/Docusate Sodium (Keli-Colace) 1 tab PO BID [facility] Last Admin: 06/07/18 08:25 Dose: Not Given Sennosides (Senokot) 17.2 mg PO Q12H PRN PRN Reason: Moderate Constipation Allergies/Adverse Reactions: Allergies Allergy/AdvReac Type Severity Reaction Status Date / Time atorvastatin Allergy Severe "STATINS" Verified 06/05/18 15:58 penicillin G Allergy Severe Itching Verified 06/05/18 15:58 shellfish derived Allergy Severe Nausea Verified 06/05/18 15:58 meclizine Allergy Intermediate VOMIT Verified 06/05/18 15:58 Sulfa (Sulfonamide Allergy Intermediate HIVES Verified 06/05/18 15:58 Antibiotics) Physical Exam Vital signs: Vital Signs 06/06/18 20:46 06/07/18 00:00 06/07/18 04:00 Temperature 97.6 F 97.9 F Pulse Rate 73 80 69 Respiratory Rate 18 18 Blood Pressure 128/66 128/60 Pulse Oximetry 96 91 L 06/07/18 08:00 06/07/18 12:00 Temperature 97.9 F 97.6 F Pulse Rate 72 68 Respiratory Rate 22 20 Blood Pressure 159/67 H 150/67 H Pulse Oximetry 94 L 95 Intake & Output 06/06/18 06/07/18 06/07/18 18:59 06:59 18:59 Intake Total 2780 / 2780 120 / 120 1000 / 1000 Balance 2780 / 2780 120 / 120 1000 / 1000 Intake: IV 1800 / 1800 1000 / 1000 NS Inj 1,000 ML @ 100 mls/hr IV 1800 / 1800 1000 / 1000 .CONT .Q10H [facility] Rx#:[id number] Oral 980 / 980 120 / 120 0 / 0 Other: # Voids 4 2 4 Date of Last Bowel Movement 06/05/18 # Bowel Movements 0 1 - Routine Neurological Exam alert, speech normal CN intact MOTOR mild right sided weakness from prior cva Objective Laboratory Results - last 24 hr 06/06/18 07:30 Hemoglobin A1c 5.9 Diagnostic Tests: echocardiogram--no embolic source Review/Management - Diagnosis (1) TIA (transient ischemic attack) Code(s): G45.9 - Transient cerebral ischemic attack, unspecified Status: Acute Current Visit: Yes - Review/Management Plan: continue aggrenox 1 bid Ok from neurology standpoint to ar home Follow up with me in office in 2-3 weeks follow up with cardiology to consider manager terminal rn cardiac cath
[2018-06-07] MEDS ORDERED: Escitalopram 10 MG Tablet PO SCH (18:00)
== END 2018-06-07 16:21 | disposition home or self-care (01) ==
LOC: NEDA 13:54 → NEPD 13:54 → OBSVTOIN 19:29 → NEDA 20:33 → N05 21:10
PROVIDERS: ADMIT Family Medicine; ATTEND Family Medicine